=== PATIENT | female | born 1975 | race Caucasian/White ===

== ENCOUNTER 2016-08-12 15:50 | Emergency (ER) | payer OTHER ==
--- NOTE | 2016-08-12 17:29 | ED CLINICAL REPORT ---
Clinical Report - Physicians/Mid Levels [facility] [address] [place] [address] 08/12/2016 15:49 Patient: AUTUMN AGUDELO Time Seen: 15:52; initial patient contact. Arrived- By private vehicle. Historian- patient. HISTORY OF PRESENT ILLNESS Chief Complaint: BOIL. This started about 2 days ago and is still present and worsening. It was gradual in onset. It is described as painful. It has been located on the right thigh. No cause has been identified. No recent insect bite. Similar symptoms previously: None. Recent medical care: Not recently seen/assessed. REVIEW OF SYSTEMS No fever or enlarged lymph nodes. She has had chills. All systems otherwise negative, except as recorded above. PAST HISTORY Abscess. Lifestyle / Substance Problems. Cellulitis. Lumbar Strain. Reflux. Migraine Headache. ADDITIONAL SURGERIES: Carpal Tunnel Surgery. Hysterectomy. Shoulder Surgery. Sinus Surgery. Tubal Ligation. SOCIAL HISTORY Current every day smoker. History of IV drug use: heroin, methamphetamines, marijuana. Recently used drugs just prior to arrival. Under influence in ED. No alcohol use. ADDITIONAL NOTES The nursing notes have been reviewed with agreement regarding the chief complaint, PMH and patient medications and allergies. PHYSICAL EXAM Vital Signs: 08/12/2016 15:53 BP: 139/88. HR: 72. RR: 16. O2 saturation: 100%. Temp: 97.9 F. Have been reviewed as normal. Appearance: Alert. Oriented X3. Anxious. Skin: Single medium abscess with fluctuance, pointing and cellulitis to right thigh. Neuro: Oriented X 3. PROGRESS AND PROCEDURES Incision & Drainage of Abscess: Per protocol, time-out completed immediately before the procedure. The abscess is located in the right thigh. The risks of the procedure, benefits and alternatives were explained. Local anesthesia provided using 2% lidocaine. Skin cleansed with Shur-Clens. The abscess was incised with a #11 surgical blade. A large amount of pus was drained. Cavity was irrigated with saline and packed with gauze. Sample obtained for cultures. A dressing was applied. Estimated blood loss: 5 mL. Disposition: Discharged home in good and improved condition. Condition: good. CLINICAL IMPRESSION Single deep abscess to the right lower extremity with incision and drainage. INSTRUCTIONS Protect wound and keep wound area clean. Leave dressing in place until seen in follow-up. Your Current Medications: CONTINUE TAKING THE FOLLOWING MEDICATIONS: Citalopram Hydrobromide Oral : daily. Omeprazole Oral : 20 mg daily. Propranolol HCl Oral : daily. TraZODone HCl Oral : 50 mg daily. Prescription Medications: Hydrocodone/APAP 5mg / 325mg: take 1 orally every 6 hours as needed for pain. Dispense ten (10). No refill. Clindamycin 300 mg: take 1 capsule orally every 8 hours for 7 days. No refill. Follow-up with: [facility], , , [address], , [place], [id number] Follow up in two days. Call for an appointment. (Electronically signed by Sebas Boucher Dr. 08/12/2016 22:48)
--- NOTE | 2016-08-12 17:29 | ED NURSING NOTES ---
Clinical Report - Nurses [facility] [address] [place] [place] [address] 08/12/2016 15:49 Patient: AUTUMN AGUDELO TRIAGE Triage time 15:53. Acuity: LEVEL 4. Chief Complaint: SKIN RASH. Alert. No acute distress. SEPSIS SCREEN: Sepsis Screen. Negative (no infection suspected/documented). ANGIE COMA SCORE: [place] Coma Scale: 15- eyes open spontaneously (4); best verbal response- oriented x 4 (5); best motor response- obeys commands (6). --15:58 Sayra Whelan R.N. 15:53 08/12/16. BP: 139/88. HR: 72. RR: 16. O2 saturation: 100%. Temp: 97.9 F. Pain level now 8/10. --15:58 Sayra Whelan R.N. Weight: 68 kg stated. Height/Length: 65 inches Per Patient. BMI: 25. --15:53 Sayra Whelan R.N. Medications Omeprazole Oral 20 mg, daily. --15:56 Sayra Whelan R.N. Propranolol HCl Oral, daily. --15:57 Sayra Whelan R.N. Citalopram Hydrobromide Oral daily. --15:57 Sayra Whelan R.N. TraZODone HCl Oral 50 mg, daily. --15:57 Sayra Whelan R.N. Allergies No Known Drug Allergy. --15:57 Sayra Whelan R.N. History Arrived by private vehicle. Historian: patient. Accompanied by (boyfriend). Primary physician (none). Reported as located on the right thigh. Onset. (2 days ago). 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 PAST MEDICAL HX: Immunizations: up-to-date. SOCIAL HX: Light tobacco smoker (cigarette)- less than 1/2 a pack per day. Alcohol use. (hx of drinking: pt states she stopped 10 years ago). History of heavy IV drug use: cocaine, heroin, methamphetamines, marijuana, benzodiazepines. (last used meth today). NUTRITIONAL RISK ASSESSMENT: The nutritional risk assessment revealed no deficiencies. FUNCTIONAL ASSESSMENT: Functional assessment: no impairments noted. LEARNING NEEDS ASSESSMENT: The learning needs assessment revealed no barriers. --15:58 Sayra Whelan R.N. PROBLEMS: Abscess. Lifestyle / Substance Problems. Cellulitis. Lumbar Strain. Reflux. Migraine Headache. --15:58 Sayra Whelan R.N. ADDITIONAL SURGERIES: Carpal Tunnel Surgery. Hysterectomy. Shoulder Surgery. Sinus Surgery. Tubal Ligation. --15:58 Sayra Whelan R.N. Interventions ID band on patient. Ambulatory. --15:58 Sayra Whelan R.N. PHYSICAL ASSESSMENT Ambulatory to room. GENERAL / NEURO / PSYCH: Alert. The patient does not appear to be in acute distress. RESPIRATORY: Respirations not labored. CVS: Capillary refill less than 2 seconds. SKIN: Skin is warm and dry. Single skin lesion on the right thigh. --15:58 Sayra Whelan R.N. NURSING PROGRESS NOTES Patient gowned. Head of bed elevated. Two patient identifiers checked. Call light placed in reach. Side rails up x 2. Bed placed in lowest position. Brakes of bed on. Patient ready for evaluation- chart flagged. --15:58 Sayra Whelan R.N. I & D: Incision and Drainage of abscess performed by ED physician. Assisted by one tech. Preparation: Incision and Drainage tray set up. Total time of assist / procedure: 15 minutes. ( cleaned wound, bulky 4 x 4 's held with tape.). --16:41 Jessica Chris ER Tech1 ( pt. ask and is given paper pants.). --16:42 Jessica Chris ER Tech1. DISPOSITION / DISCHARGE 17:35 08/12/16. RR: 16. Additional comments: re d/c v/s: pt left ED prior to d/c v/s. Pt. given d/c paperwork in waiting room. . --20:47 Sayra Whelan R.N. Departure time: 1735. Condition at departure: stable. No learning barriers present. Discharge instructions provided and reviewed with the patient. Reviewed medication(s) side effects, precautions, dosing and course information. Prescription(s) given to the patient. Reviewed referral to family practice for followup. Patient verbalized understanding. Written instructions provided in Hebrew. The patient was discharged home and accompanied by family. She left the Emergency Department ambulatory and via private vehicle. Family member driving. Medication list reviewed and validated. --20:47 Sayra Whelan R.N. Locked/Released at 08/12/2016 20:48 by Sayra Whelan R.N.
--- NOTE | 2016-08-12 17:29 | ED NURSING NOTES ---
Clinical Report - Nurses [facility] [address] [place] [address] 08/12/2016 15:49 Patient: AUTUMN AGUDELO TRIAGE Triage time 15:53. Acuity: LEVEL 4. Chief Complaint: SKIN RASH. Alert. No acute distress. SEPSIS SCREEN: Sepsis Screen. Negative (no infection suspected/documented). ANGIE COMA SCORE: [place] Coma Scale: 15- eyes open spontaneously (4); best verbal response- oriented x 4 (5); best motor response- obeys commands (6). --15:58 Syara Whelan R.N. 15:53 08/12/16. BP: 139/88. HR: 72. RR: 16. O2 saturation: 100%. Temp: 97.9 F. Pain level now 8/10. --15:58 Sayra Whelan R.N. Weight: 68 kg stated. Height/Length: 65 inches Per Patient. BMI: 25. --15:53 Sayra Whelan R.N. Medications Omeprazole Oral 20 mg, daily. --15:56 Sayra Whelan R.N. Propranolol HCl Oral, daily. --15:57 Sayra Whelan R.N. Citalopram Hydrobromide Oral daily. --15:57 Sayra Whelan R.N. TraZODone HCl Oral 50 mg, daily. --15:57 Sayra Whelan R.N. Allergies No Known Drug Allergy. --15:57 Sayra Whelan R.N. History Arrived by private vehicle. Historian: patient. Accompanied by (boyfriend). Primary physician (none). Reported as located on the right thigh. Onset. (2 days ago). 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 PAST MEDICAL HX: Immunizations: up-to-date. SOCIAL HX: Light tobacco smoker (cigarette)- less than 1/2 a pack per day. Alcohol use. (hx of drinking: pt states she stopped 10 years ago). History of heavy IV drug use: cocaine, heroin, methamphetamines, marijuana, benzodiazepines. (last used meth today). NUTRITIONAL RISK ASSESSMENT: The nutritional risk assessment revealed no deficiencies. FUNCTIONAL ASSESSMENT: Functional assessment: no impairments noted. LEARNING NEEDS ASSESSMENT: The learning needs assessment revealed no barriers. --15:58 Sayra Whelan R.N. PROBLEMS: Abscess. Lifestyle / Substance Problems. Cellulitis. Lumbar Strain. Reflux. Migraine Headache. --15:58 Sayra Whelan R.N. ADDITIONAL SURGERIES: Carpal Tunnel Surgery. Hysterectomy. Shoulder Surgery. Sinus Surgery. Tubal Ligation. --15:58 Sayra Whelan R.N. Interventions ID band on patient. Ambulatory. --15:58 Sayra Whelan R.N. PHYSICAL ASSESSMENT Ambulatory to room. GENERAL / NEURO / PSYCH: Alert. The patient does not appear to be in acute distress. RESPIRATORY: Respirations not labored. CVS: Capillary refill less than 2 seconds. SKIN: Skin is warm and dry. Single skin lesion on the right thigh. --15:58 Sayra Whelan R.N. NURSING PROGRESS NOTES Patient gowned. Head of bed elevated. Two patient identifiers checked. Call light placed in reach. Side rails up x 2. Bed placed in lowest position. Brakes of bed on. Patient ready for evaluation- chart flagged. --15:58 Sayra Whelan R.N. I & D: Incision and Drainage of abscess performed by ED physician. Assisted by one tech. Preparation: Incision and Drainage tray set up. Total time of assist / procedure: 15 minutes. ( cleaned wound, bulky 4 x 4 's held with tape.). --16:41 Jessica Chris ER Tech1 ( pt. ask and is given paper pants.). --16:42 Jessica Chris ER Tech1. DISPOSITION / DISCHARGE 17:35 08/12/16. RR: 16. Additional comments: re d/c v/s: pt left ED prior to d/c v/s. Pt. given d/c paperwork in waiting room. . --20:47 Sayra Whelan R.N. Departure time: 1735. Condition at departure: stable. No learning barriers present. Discharge instructions provided and reviewed with the patient. Reviewed medication(s) side effects, precautions, dosing and course information. Prescription(s) given to the patient. Reviewed referral to family practice for followup. Patient verbalized understanding. Written instructions provided in Urdu. The patient was discharged home and accompanied by family. She left the Emergency Department ambulatory and via private vehicle. Family member driving. Medication list reviewed and validated. --20:47 Sayra Whelan R.N. Locked/Released at 08/12/2016 20:48 by Sayra Whelan R.N.
--- NOTE | 2016-08-12 17:29 | ED CLINICAL REPORT ---
Clinical Report - Physicians/Mid Levels [facility] [address] [place] [address] 08/12/2016 15:49 Patient: AUTUMN AGUDELO Time Seen: 15:52; initial patient contact. Arrived- By private vehicle. Historian- patient. HISTORY OF PRESENT ILLNESS Chief Complaint: BOIL. This started about 2 days ago and is still present and worsening. It was gradual in onset. It is described as painful. It has been located on the right thigh. No cause has been identified. No recent insect bite. Similar symptoms previously: None. Recent medical care: Not recently seen/assessed. REVIEW OF SYSTEMS No fever or enlarged lymph nodes. She has had chills. All systems otherwise negative, except as recorded above. PAST HISTORY Abscess. Lifestyle / Substance Problems. Cellulitis. Lumbar Strain. Reflux. Migraine Headache. ADDITIONAL SURGERIES: Carpal Tunnel Surgery. Hysterectomy. Shoulder Surgery. Sinus Surgery. Tubal Ligation. SOCIAL HISTORY Current every day smoker. History of IV drug use: heroin, methamphetamines, marijuana. Recently used drugs just prior to arrival. Under influence in ED. No alcohol use. ADDITIONAL NOTES The nursing notes have been reviewed with agreement regarding the chief complaint, PMH and patient medications and allergies. PHYSICAL EXAM Vital Signs: 08/12/2016 15:53 BP: 139/88. HR: 72. RR: 16. O2 saturation: 100%. Temp: 97.9 F. Have been reviewed as normal. Appearance: Alert. Oriented X3. Anxious. Skin: Single medium abscess with fluctuance, pointing and cellulitis to right thigh. Neuro: Oriented X 3. PROGRESS AND PROCEDURES Incision & Drainage of Abscess: Per protocol, time-out completed immediately before the procedure. The abscess is located in the right thigh. The risks of the procedure, benefits and alternatives were explained. Local anesthesia provided using 2% lidocaine. Skin cleansed with Shur-Clens. The abscess was incised with a #11 surgical blade. A large amount of pus was drained. Cavity was irrigated with saline and packed with gauze. Sample obtained for cultures. A dressing was applied. Estimated blood loss: 5 mL. Disposition: Discharged home in good and improved condition. Condition: good. CLINICAL IMPRESSION Single deep abscess to the right lower extremity with incision and drainage. INSTRUCTIONS Protect wound and keep wound area clean. Leave dressing in place until seen in follow-up. Your Current Medications: CONTINUE TAKING THE FOLLOWING MEDICATIONS: Citalopram Hydrobromide Oral : daily. Omeprazole Oral : 20 mg daily. Propranolol HCl Oral : daily. TraZODone HCl Oral : 50 mg daily. Prescription Medications: Hydrocodone/APAP 5mg / 325mg: take 1 orally every 6 hours as needed for pain. Dispense ten (10). No refill. Clindamycin 300 mg: take 1 capsule orally every 8 hours for 7 days. No refill. Follow-up with: [facility], , , [address], , [place], [id number] Follow up in two days. Call for an appointment. (Electronically signed by Sebas Boucher Dr. 08/12/2016 22:48)
--- NOTE | 2016-08-12 17:29 | ED ORDER SUMMARY ---
..... Patient: AUTUMN AGUDELO OrderSheet [facility] VisitID: [id number] [address] [place] [address] 41y, F Registration Date/Time: 08/12/2016 ORDER SHEET Weight: 68.0 kg (stated) Allergies: No Known Drug Allergy GENERAL ORDERS: Culture, Wound Deep (Leg) (...) Urgent (16:57 08/12/2016 Charlette Santos) (17:00 [facility] ER Tech1) MEDICATION ORDERS: IV FLUIDS: ORDER SHEET NOTES: [Electronically signed by Sayra Whelan R.N. (20:48 08/12/2016)] [Electronically signed by Sebas Boucher Dr. (22:48 08/12/2016)] [Electronically locked/signed by Sayra Whelan R.N. (20:48 08/12/2016)]
--- NOTE | 2016-08-12 17:29 | ED ORDER SUMMARY ---
..... Patient: AUTUMN AGUDELO OrderSheet [facility] VisitID: [id number] [address] [place] [address] 41y, F Registration Date/Time: 08/12/2016 ORDER SHEET Weight: 68.0 kg (stated) Allergies: No Known Drug Allergy GENERAL ORDERS: Culture, Wound Deep (Leg) (...) Urgent (16:57 08/12/2016 Charlette Santos) (17:00 [facility] ER Tech1) MEDICATION ORDERS: IV FLUIDS: ORDER SHEET NOTES: [Electronically signed by Sayra Whelan R.N. (20:48 08/12/2016)] [Electronically signed by Sebas Boucher Dr. (22:48 08/12/2016)] [Electronically locked/signed by Sayra Whelan R.N. (20:48 08/12/2016)]
--- NOTE | 2016-08-12 22:48 | ED DISCHARGE INSTRUCTIONS ---
Patient: AUTUMN AGUDELO General Instructions [facility] VisitID: [id number] [address] [place] [address] 41y, F Registration Date/Time: 08/12/2016 Single deep abscess to the right lower extremity with incision and drainage. INSTRUCTIONS Protect wound and keep wound area clean. Leave dressing in place until seen in follow-up. Your Current Medications: CONTINUE TAKING THE FOLLOWING MEDICATIONS: Citalopram Hydrobromide Oral : daily. Omeprazole Oral : 20 mg daily. Propranolol HCl Oral : daily. TraZODone HCl Oral : 50 mg daily. Prescription Medications: Hydrocodone/APAP 5mg / 325mg: take 1 orally every 6 hours as needed for pain. Dispense ten (10). No refill. Clindamycin 300 mg: take 1 capsule orally every 8 hours for 7 days. No refill. Follow-up with: [facility], , , [address], , [place], [address] Follow up in two days. Call for an appointment. ADDITIONAL INFORMATION Abscess [Incision & Drainage] An abscess (sometimes called a boil) occurs when bacteria get trapped under the skin and begin to grow. Pus forms inside the abscess as the body responds to the bacteria. An abscess can occur with an insect bite, ingrown hair, blocked oil gland, pimple, cyst, or puncture wound. Treatment of your abscess has required an incision to drain the pus. If the abscess pocket was large, a gauze packing may have been inserted. This will need to be removed and possibly replaced on your next visit. Antibiotics are not required in the treatment of a simple abscess, unless the infection is spreading into the skin around the wound (known as cellulitis). Healing of the wound will take about one to two weeks depending on the size of the abscess. Healthy tissue will grow from the bottom and sides of the opening until it seals over. Home Care: The wound may drain for the first two days. Cover the wound with a clean dry dressing. If the dressing becomes soaked with blood or pus, change it. If a gauze packing was placed inside the abscess cavity, you may be advised to remove it yourself. You may do this in the shower. Once the packing is removed, you should wash the area in the shower or bath 3 to 4 times a day, until the skin opening has closed. If you were prescribed antibiotics, take them as directed until they are all gone. You may use acetaminophen (Tylenol) or ibuprofen (Motrin, Advil) to control pain, unless another pain medicine was prescribed. [ NOTE: If you have liver disease or ever had a stomach ulcer, talk with your doctor before using these medicines.] Follow Up with your doctor as advised by our staff. If a gauze packing was inserted in your wound, it should be removed in 1-2 days. Check your wound every day for the signs of worsening infection listed below. Get Prompt Medical Attention if any of the following occur: Increasing redness or swelling Red streaks in the skin leading away from the wound Increasing local pain or swelling Continued pus draining from the wound two days after treatment Fever of 100.4F (38C) or higher, or as directed by your healthcare provider Hydrocodone Bitartrate, Acetaminophen Oral tablet What is this medicine? ACETAMINOPHEN; HYDROCODONE (a set a KAYLA parth fen; kristine droe KOE done) is a pain reliever. It is used to treat mild to moderate pain. How should I use this medicine? Take this medicine by mouth. Swallow it with a full glass of water. Follow the directions on the prescription label. If the medicine upsets your stomach, take the medicine with food or milk. Do not take more than you are told to take. Talk to your side laster tack regarding the use of this medicine in children. This medicine is not approved for use in children. What side effects may I notice from receiving this medicine? Side effects that you should report to your doctor or health home care associate as soon as possible: allergic reactions like skin rash, itching or hives, swelling of the face, lips, or tongue breathing problems confusion feeling faint or lightheaded, falls stomach pain yellowing of the eyes or skin Side effects that usually do not require medical attention (report to your doctor or health home care associate if they continue or are bothersome): nausea, vomiting stomach upset What may interact with this medicine? alcohol antihistamines isoniazid medicines for depression, anxiety, or psychotic disturbances medicines for sleep muscle relaxants naltrexone narcotic medicines (opiates) for pain phenobarbital ritonavir tramadol What if I miss a dose? If you miss a dose, take it as soon as you can. If it is almost time for your next dose, take only that dose. Do not take double or extra doses. Where should I keep my medicine? Keep out of the reach of children. This medicine can be abused. Keep your medicine in a safe place to protect it from theft. Do not share this medicine with anyone. Selling or giving away this medicine is dangerous and against the law. Store at room temperature between 15 and 30 degrees C (59 and 86 degrees F). Protect from light. Keep container tightly closed. Throw away any unused medicine after the expiration date. Discard unused medicine and used packaging carefully. Pets and children can be harmed if they find used or lost packages. What should I tell my health care provider before I take this medicine? They need to know if you have any of these conditions: brain tumor Crohn's disease, inflammatory bowel disease, or ulcerative colitis drink more than 3 alcohol-containing drinks per day drug abuse or addiction head injury heart or circulation problems kidney disease or problems going to the bathroom liver disease lung disease, asthma, or breathing problems an unusual or allergic reaction to acetaminophen, hydrocodone, other opioid analgesics, other medicines, foods, dyes, or preservatives or trying to get breast-feeding What should I watch for while using this medicine? Tell your doctor or health home care associate if your pain does not go away, if it gets worse, or if you have new or a different type of pain. You may develop tolerance to the medicine. Tolerance means that you will need a higher dose of the medicine for pain relief. Tolerance is normal and is expected if you take the medicine for a long time. Do not suddenly stop taking your medicine because you may develop a severe reaction. Your body becomes used to the medicine. This does NOT mean you are addicted. Addiction is a behavior related to getting and using a drug for a non-medical reason. If you have pain, you have a medical reason to take pain medicine. Your doctor will tell you how much medicine to take. If your doctor wants you to stop the medicine, the dose will be slowly lowered over time to avoid any side effects. You may get drowsy or dizzy when you first start taking the medicine or change doses. Do not drive, use machinery, or do anything that may be dangerous until you know how the medicine affects you. Stand or sit up slowly. There are different types of narcotic medicines (opiates) for pain. If you take more than one type at the same time, you may have more side effects. Give your health care provider a list of all medicines you use. Your doctor will tell you how much medicine to take. Do not take more medicine than directed. Call emergency for help if you have problems breathing. The medicine will cause constipation. Try to have a bowel movement at least every 2 to 3 days. If you do not have a bowel movement for 3 days, call your doctor or health home care associate. Too much acetaminophen can be very dangerous. Do not take Tylenol (acetaminophen) or medicines that contain acetaminophen with this medicine. Many non-prescription medicines contain acetaminophen. Always read the labels carefully. Clindamycin Hydrochloride Oral capsule What is this medicine? CLINDAMYCIN (PATRIZIA Berumen) is a lincosamide antibiotic. It is used to treat certain kinds of bacterial infections. It will not work for colds, flu, or other viral infections. How should I use this medicine? Take this medicine by mouth with a full glass of water. Follow the directions on the prescription label. You can take this medicine with food or on an empty stomach. If the medicine upsets your stomach, take it with food. Take your medicine at regular intervals. Do not take your medicine more often than directed. Take all of your medicine as directed even if you think your are better. Do not skip doses or stop your medicine early. Talk to your side laster tack regarding the use of this medicine in children. Special care may be needed. What side effects may I notice from receiving this medicine? Side effects that you should report to your doctor or health home care associate as soon as possible: allergic reactions like skin rash, itching or hives, swelling of the face, lips, or tongue dark urine pain on swallowing redness, blistering, peeling or loosening of the skin, including inside the mouth unusual bleeding or bruising unusually weak or tired yellowing of eyes or skin Side effects that usually do not require medical attention (report to your doctor or health home care associate if they continue or are bothersome): diarrhea itching in the rectal or genital area joint pain nausea, vomiting stomach pain What may interact with this medicine? chloramphenicol erythromycin kaolin products What if I miss a dose? If you miss a dose, take it as soon as you can. If it is almost time for your next dose, take only that dose. Do not take double or extra doses. Where should I keep my medicine? Keep out of the reach of children. Store at room temperature between 20 and 25 degrees C (68 and 77 degrees F). Throw away any unused medicine after the expiration date. What should I tell my health care provider before I take this medicine? They need to know if you have any of these conditions: kidney disease liver disease stomach problems like colitis an unusual or allergic reaction to clindamycin, lincomycin, or other medicines, foods, dyes like tartrazine or preservatives or trying to get breast-feeding What should I watch for while using this medicine? Tell your doctor or healthcare professional if your symptoms do not start to get better or if they get worse. Do not treat diarrhea with over the counter products. Contact your doctor if you have diarrhea that lasts more than 2 days or if it is severe and watery. You have been given the following additional information: Abscess, Incision And Drainage Hydrocodone Bitartrate, Acetaminophen Oral tablet Clindamycin Hydrochloride Oral capsule (Electronically signed by Sebas Boucher Dr. 08/12/2016 22:48)
--- NOTE | 2016-08-12 22:48 | ED MED RECONCILIATION SUMMARY ---
Patient: AUTUMN AGUDELO Medication Reconciliation Report [facility] VisitID: [id number] [address] [place] [place] [address] 41y, F Registration Date/Time: 08/12/2016 Weight: 68.0 kg Height/Length: 65 in. BMI: 25.0 ALLERGIES: No Known Drug Allergy The patient's Home Medications are listed below: CONTINUE TAKING THE FOLLOWING MEDICATIONS: Citalopram Hydrobromide Oral daily Omeprazole Oral 20 mg, daily Propranolol HCl Oral, daily TraZODone HCl Oral 50 mg, daily The source(s) of the original Home Medication information: Not obtained. The following Medications were given to the patient in the Emergency Department: None. The following Medications were prescribed to the patient: Hydrocodone/APAP 5mg / 325mg: take 1 orally every 6 hours as needed for pain. Dispense ten (10). No refill. -- Sebas Boucher Dr. Clindamycin 300 mg: take 1 capsule orally every 8 hours for 7 days. No refill. -- Sebas Boucher Dr.
--- NOTE | 2016-08-12 22:48 | ED DISCHARGE INSTRUCTIONS ---
Patient: AUTUMN AGUDELO General Instructions [facility] VisitID: [id number] [address] [place] [address] 41y, F Registration Date/Time: 08/12/2016 Single deep abscess to the right lower extremity with incision and drainage. INSTRUCTIONS Protect wound and keep wound area clean. Leave dressing in place until seen in follow-up. Your Current Medications: CONTINUE TAKING THE FOLLOWING MEDICATIONS: Citalopram Hydrobromide Oral : daily. Omeprazole Oral : 20 mg daily. Propranolol HCl Oral : daily. TraZODone HCl Oral : 50 mg daily. Prescription Medications: Hydrocodone/APAP 5mg / 325mg: take 1 orally every 6 hours as needed for pain. Dispense ten (10). No refill. Clindamycin 300 mg: take 1 capsule orally every 8 hours for 7 days. No refill. Follow-up with: [facility], , , [address], , [place], [address] Follow up in two days. Call for an appointment. ADDITIONAL INFORMATION Abscess [Incision & Drainage] An abscess (sometimes called a boil) occurs when bacteria get trapped under the skin and begin to grow. Pus forms inside the abscess as the body responds to the bacteria. An abscess can occur with an insect bite, ingrown hair, blocked oil gland, pimple, cyst, or puncture wound. Treatment of your abscess has required an incision to drain the pus. If the abscess pocket was large, a gauze packing may have been inserted. This will need to be removed and possibly replaced on your next visit. Antibiotics are not required in the treatment of a simple abscess, unless the infection is spreading into the skin around the wound (known as cellulitis). Healing of the wound will take about one to two weeks depending on the size of the abscess. Healthy tissue will grow from the bottom and sides of the opening until it seals over. Home Care: The wound may drain for the first two days. Cover the wound with a clean dry dressing. If the dressing becomes soaked with blood or pus, change it. If a gauze packing was placed inside the abscess cavity, you may be advised to remove it yourself. You may do this in the shower. Once the packing is removed, you should wash the area in the shower or bath 3 to 4 times a day, until the skin opening has closed. If you were prescribed antibiotics, take them as directed until they are all gone. You may use acetaminophen (Tylenol) or ibuprofen (Motrin, Advil) to control pain, unless another pain medicine was prescribed. [ NOTE: If you have liver disease or ever had a stomach ulcer, talk with your doctor before using these medicines.] Follow Up with your doctor as advised by our staff. If a gauze packing was inserted in your wound, it should be removed in 1-2 days. Check your wound every day for the signs of worsening infection listed below. Get Prompt Medical Attention if any of the following occur: Increasing redness or swelling Red streaks in the skin leading away from the wound Increasing local pain or swelling Continued pus draining from the wound two days after treatment Fever of 100.4F (38C) or higher, or as directed by your healthcare provider Hydrocodone Bitartrate, Acetaminophen Oral tablet What is this medicine? ACETAMINOPHEN; HYDROCODONE (a set a KAYLA parth fen; kristine droe KOE done) is a pain reliever. It is used to treat mild to moderate pain. How should I use this medicine? Take this medicine by mouth. Swallow it with a full glass of water. Follow the directions on the prescription label. If the medicine upsets your stomach, take the medicine with food or milk. Do not take more than you are told to take. Talk to your retail chain store area supervisor regarding the use of this medicine in children. This medicine is not approved for use in children. What side effects may I notice from receiving this medicine? Side effects that you should report to your doctor or health laboratory animal caretaker as soon as possible: allergic reactions like skin rash, itching or hives, swelling of the face, lips, or tongue breathing problems confusion feeling faint or lightheaded, falls stomach pain yellowing of the eyes or skin Side effects that usually do not require medical attention (report to your doctor or health laboratory animal caretaker if they continue or are bothersome): nausea, vomiting stomach upset What may interact with this medicine? alcohol antihistamines isoniazid medicines for depression, anxiety, or psychotic disturbances medicines for sleep muscle relaxants naltrexone narcotic medicines (opiates) for pain phenobarbital ritonavir tramadol What if I miss a dose? If you miss a dose, take it as soon as you can. If it is almost time for your next dose, take only that dose. Do not take double or extra doses. Where should I keep my medicine? Keep out of the reach of children. This medicine can be abused. Keep your medicine in a safe place to protect it from theft. Do not share this medicine with anyone. Selling or giving away this medicine is dangerous and against the law. Store at room temperature between 15 and 30 degrees C (59 and 86 degrees F). Protect from light. Keep container tightly closed. Throw away any unused medicine after the expiration date. Discard unused medicine and used packaging carefully. Pets and children can be harmed if they find used or lost packages. What should I tell my health care provider before I take this medicine? They need to know if you have any of these conditions: brain tumor Crohn's disease, inflammatory bowel disease, or ulcerative colitis drink more than 3 alcohol-containing drinks per day drug abuse or addiction head injury heart or circulation problems kidney disease or problems going to the bathroom liver disease lung disease, asthma, or breathing problems an unusual or allergic reaction to acetaminophen, hydrocodone, other opioid analgesics, other medicines, foods, dyes, or preservatives or trying to get breast-feeding What should I watch for while using this medicine? Tell your doctor or health laboratory animal caretaker if your pain does not go away, if it gets worse, or if you have new or a different type of pain. You may develop tolerance to the medicine. Tolerance means that you will need a higher dose of the medicine for pain relief. Tolerance is normal and is expected if you take the medicine for a long time. Do not suddenly stop taking your medicine because you may develop a severe reaction. Your body becomes used to the medicine. This does NOT mean you are addicted. Addiction is a behavior related to getting and using a drug for a non-medical reason. If you have pain, you have a medical reason to take pain medicine. Your doctor will tell you how much medicine to take. If your doctor wants you to stop the medicine, the dose will be slowly lowered over time to avoid any side effects. You may get drowsy or dizzy when you first start taking the medicine or change doses. Do not drive, use machinery, or do anything that may be dangerous until you know how the medicine affects you. Stand or sit up slowly. There are different types of narcotic medicines (opiates) for pain. If you take more than one type at the same time, you may have more side effects. Give your health care provider a list of all medicines you use. Your doctor will tell you how much medicine to take. Do not take more medicine than directed. Call emergency for help if you have problems breathing. The medicine will cause constipation. Try to have a bowel movement at least every 2 to 3 days. If you do not have a bowel movement for 3 days, call your doctor or health laboratory animal caretaker. Too much acetaminophen can be very dangerous. Do not take Tylenol (acetaminophen) or medicines that contain acetaminophen with this medicine. Many non-prescription medicines contain acetaminophen. Always read the labels carefully. Clindamycin Hydrochloride Oral capsule What is this medicine? CLINDAMYCIN (PATRIZIA Berumen) is a lincosamide antibiotic. It is used to treat certain kinds of bacterial infections. It will not work for colds, flu, or other viral infections. How should I use this medicine? Take this medicine by mouth with a full glass of water. Follow the directions on the prescription label. You can take this medicine with food or on an empty stomach. If the medicine upsets your stomach, take it with food. Take your medicine at regular intervals. Do not take your medicine more often than directed. Take all of your medicine as directed even if you think your are better. Do not skip doses or stop your medicine early. Talk to your retail chain store area supervisor regarding the use of this medicine in children. Special care may be needed. What side effects may I notice from receiving this medicine? Side effects that you should report to your doctor or health laboratory animal caretaker as soon as possible: allergic reactions like skin rash, itching or hives, swelling of the face, lips, or tongue dark urine pain on swallowing redness, blistering, peeling or loosening of the skin, including inside the mouth unusual bleeding or bruising unusually weak or tired yellowing of eyes or skin Side effects that usually do not require medical attention (report to your doctor or health laboratory animal caretaker if they continue or are bothersome): diarrhea itching in the rectal or genital area joint pain nausea, vomiting stomach pain What may interact with this medicine? chloramphenicol erythromycin kaolin products What if I miss a dose? If you miss a dose, take it as soon as you can. If it is almost time for your next dose, take only that dose. Do not take double or extra doses. Where should I keep my medicine? Keep out of the reach of children. Store at room temperature between 20 and 25 degrees C (68 and 77 degrees F). Throw away any unused medicine after the expiration date. What should I tell my health care provider before I take this medicine? They need to know if you have any of these conditions: kidney disease liver disease stomach problems like colitis an unusual or allergic reaction to clindamycin, lincomycin, or other medicines, foods, dyes like tartrazine or preservatives or trying to get breast-feeding What should I watch for while using this medicine? Tell your doctor or healthcare professional if your symptoms do not start to get better or if they get worse. Do not treat diarrhea with over the counter products. Contact your doctor if you have diarrhea that lasts more than 2 days or if it is severe and watery. You have been given the following additional information: Abscess, Incision And Drainage Hydrocodone Bitartrate, Acetaminophen Oral tablet Clindamycin Hydrochloride Oral capsule (Electronically signed by Sebas Boucher Dr. 08/12/2016 22:48)
--- NOTE | 2016-08-12 22:48 | ED MED RECONCILIATION SUMMARY ---
Patient: AUTUMN AGUDELO Medication Reconciliation Report [facility] VisitID: [id number] [address] [place] [address] 41y, F Registration Date/Time: 08/12/2016 Weight: 68.0 kg Height/Length: 65 in. BMI: 25.0 ALLERGIES: No Known Drug Allergy The patient's Home Medications are listed below: CONTINUE TAKING THE FOLLOWING MEDICATIONS: Citalopram Hydrobromide Oral daily Omeprazole Oral 20 mg, daily Propranolol HCl Oral, daily TraZODone HCl Oral 50 mg, daily The source(s) of the original Home Medication information: Not obtained. The following Medications were given to the patient in the Emergency Department: None. The following Medications were prescribed to the patient: Hydrocodone/APAP 5mg / 325mg: take 1 orally every 6 hours as needed for pain. Dispense ten (10). No refill. -- Sebas Boucher Dr. Clindamycin 300 mg: take 1 capsule orally every 8 hours for 7 days. No refill. -- Sebas Boucher Dr.
--- NOTE | 2016-08-12 22:48 | ED MAR SUMMARY ---
..... Medication Administration Record [facility] [address] [place], [place] [id number] Patient: AUTUMN AGUDELO Visit ID: [id number] 41y, F Weight: 68.0 kg Height/Length: 65 in BMI: 25 ALLERGIES: No Known Drug Allergy
--- NOTE | 2016-08-12 22:48 | ED MAR SUMMARY ---
..... Medication Administration Record [facility] [address] [place] [id number] Patient: AUTUMN AGUDELO Visit ID: [id number] 41y, F Weight: 68.0 kg Height/Length: 65 in BMI: 25 ALLERGIES: No Known Drug Allergy
== END 2016-08-12 17:35 | disposition home or self-care (01) ==
LOC: ED SRH 15:50
DX: L03.115 Cellulitis of right lower limb (principal); K21.9 Gastro-esophageal reflux disease without esophagitis; F17.210 Nicotine dependence, cigarettes, uncomplicated
CPT/HCPCS: 90070; 90131; 90309; 90470; 91672

== ENCOUNTER 2016-09-04 02:27 | Emergency (ER) | payer OTHER ==
--- NOTE | 2016-09-04 02:47 | ED NURSING NOTES ---
Clinical Report - Nurses [facility] [address] [place] [address] 09/04/2016 2:26 Patient: AUTUMN AGUDELO TRIAGE Triage time 0232 AM. Chief Complaint: BACK PAIN. Alert. No acute distress. ANGIE COMA SCORE: [place] Coma Scale: 15- eyes open spontaneously (4); best verbal response- oriented x 4 (5); best motor response- obeys commands (6). --02:37 Fredy Sood R.N. 02:31 09/04/16. HR: 123. RR: 20. O2 saturation: 97%. Temp: 98.7 F. Pain level now: 04/14. Additional comments: Patient refused blood pressure. --02:37 Fredy Sood R.N. Weight: 68 kg stated. Height/Length: 65 inches Per Patient. BMI: 25. --02:31 Fredy Sood R.N. Medications Citalopram Hydrobromide Oral daily. Omeprazole Oral 20 mg, daily. Propranolol HCl Oral, daily. TraZODone HCl Oral 50 mg, daily. --02:35 Fredy Sood R.N. Allergies No Known Drug Allergy. --02:35 Fredy Sood R.N. History Arrived by EMS. Historian: patient. Unaccompanied. ( Patient states that she she has a history of sciatica effecting her right side. Patient states that a few weeks ago that she feel down on the street last week and injured her left side, arm, and neck. Patient states that she is also experiencing bilateral headaches. Patient crying upon arrival.). --02:37 Fredy Sood R.N. PROBLEMS: Abscess. Lifestyle / Substance Problems. Cellulitis. Immunizations. LNMP - Last Normal Menstrual Period. Lumbar Strain. Reflux. Migraine Headache. --02:36 Fredy Sood R.N. Pain contract [Resolved]. --02:36 Fredy Sood R.N. ADDITIONAL SURGERIES: Carpal Tunnel Surgery. Hysterectomy. Shoulder Surgery. Sinus Surgery. Tubal Ligation. --02:36 Fredy Sood R.N. DISPOSITION / DISCHARGE The patient left the Emergency Department before triage and without being seen by a physician; patient was unaccompanied. The patient appears to be alert, oriented x4, coherent and in no acute distress. The patient stated is leaving the ED due to personal reasons. Notified the ED physician and charge nurse of patient departure. Prior to leaving the ED, she was advised to stay for completion of treatment and return if needed. She was informed of the risks of leaving and verbalized understanding of these risks. Patient signed form prior to leaving. She left the Emergency Department ambulatory. --02:40 Fredy Sood R.N. Departure time: 0240 AM. --02:41 Fredy Sood R.N. ( Brought patient's coat to her in the lobby. Patient is standing and talking on the phone with an even and steady gait.). --02:49 Fredy Sood R.N. Locked/Released at 09/04/2016 2:51 by Fredy Sood R.N.
--- NOTE | 2016-09-04 02:47 | ED NURSING NOTES ---
Clinical Report - Nurses [facility] [address] [place] [address] 09/04/2016 2:26 Patient: AUTUMN AGUDELO TRIAGE Triage time 0232 AM. Chief Complaint: BACK PAIN. Alert. No acute distress. ANGIE COMA SCORE: [place] Coma Scale: 15- eyes open spontaneously (4); best verbal response- oriented x 4 (5); best motor response- obeys commands (6). --02:37 Fredy Sood R.N. 02:31 09/04/16. HR: 123. RR: 20. O2 saturation: 97%. Temp: 98.7 F. Pain level now: 04/14. Additional comments: Patient refused blood pressure. --02:37 Fredy Sood R.N. Weight: 68 kg stated. Height/Length: 65 inches Per Patient. BMI: 25. --02:31 Fredy Sood R.N. Medications Citalopram Hydrobromide Oral daily. Omeprazole Oral 20 mg, daily. Propranolol HCl Oral, daily. TraZODone HCl Oral 50 mg, daily. --02:35 Fredy Sood R.N. Allergies No Known Drug Allergy. --02:35 Fredy Sood R.N. History Arrived by EMS. Historian: patient. Unaccompanied. ( Patient states that she she has a history of sciatica effecting her right side. Patient states that a few weeks ago that she feel down on the street last week and injured her left side, arm, and neck. Patient states that she is also experiencing bilateral headaches. Patient crying upon arrival.). --02:37 Fredy Sood R.N. PROBLEMS: Abscess. Lifestyle / Substance Problems. Cellulitis. Immunizations. LNMP - Last Normal Menstrual Period. Lumbar Strain. Reflux. Migraine Headache. --02:36 Fredy Sood R.N. Pain contract [Resolved]. --02:36 Fredy Sood R.N. ADDITIONAL SURGERIES: Carpal Tunnel Surgery. Hysterectomy. Shoulder Surgery. Sinus Surgery. Tubal Ligation. --02:36 Fredy Sood R.N. DISPOSITION / DISCHARGE The patient left the Emergency Department before triage and without being seen by a physician; patient was unaccompanied. The patient appears to be alert, oriented x4, coherent and in no acute distress. The patient stated is leaving the ED due to personal reasons. Notified the ED physician and charge nurse of patient departure. Prior to leaving the ED, she was advised to stay for completion of treatment and return if needed. She was informed of the risks of leaving and verbalized understanding of these risks. Patient signed form prior to leaving. She left the Emergency Department ambulatory. --02:40 Fredy Sood R.N. Departure time: 0240 AM. --02:41 Fredy Sood R.N. ( Brought patient's coat to her in the lobby. Patient is standing and talking on the phone with an even and steady gait.). --02:49 Fredy Sood R.N. Locked/Released at 09/04/2016 2:51 by Fredy Sood R.N.
--- NOTE | 2016-09-04 02:47 | ED CLINICAL REPORT ---
Clinical Report - Physicians/Mid Levels [facility] [address] [place] [address] 09/04/2016 2:26 Patient: AUTUMN AGUDELO PROGRESS AND PROCEDURES Course of Care: Left without being seen. (Electronically signed by Milan Jain MD 09/04/2016 2:51)
--- NOTE | 2016-09-04 02:47 | ED CLINICAL REPORT ---
Clinical Report - Physicians/Mid Levels [facility] [address] [place] [address] 09/04/2016 2:26 Patient: AUTUMN AGUDELO PROGRESS AND PROCEDURES Course of Care: Left without being seen. (Electronically signed by Milan Jain MD 09/04/2016 2:51)
--- NOTE | 2016-09-04 02:52 | ED MED RECONCILIATION SUMMARY ---
Patient: AUUTMN AGUDELO Medication Reconciliation Report [facility] VisitID: [id number] [address] [place] [address] 41y, F Registration Date/Time: 09/04/2016 Weight: 68.0 kg Height/Length: 65 in. BMI: 25.0 ALLERGIES: No Known Drug Allergy The patient's Home Medications are listed below: THE FOLLOWING MEDICATIONS NEED TO BE RECONCILED: Citalopram Hydrobromide Oral daily Omeprazole Oral 20 mg, daily Propranolol HCl Oral, daily TraZODone HCl Oral 50 mg, daily The source(s) of the original Home Medication information: Not obtained. The following Medications were given to the patient in the Emergency Department: None. The following Medications were prescribed to the patient: None.
--- NOTE | 2016-09-04 02:52 | ED MED RECONCILIATION SUMMARY ---
Patient: AUTUMN AGUDELO Medication Reconciliation Report [facility] VisitID: [id number] [address] [place] [address] 41y, F Registration Date/Time: 09/04/2016 Weight: 68.0 kg Height/Length: 65 in. BMI: 25.0 ALLERGIES: No Known Drug Allergy The patient's Home Medications are listed below: THE FOLLOWING MEDICATIONS NEED TO BE RECONCILED: Citalopram Hydrobromide Oral daily Omeprazole Oral 20 mg, daily Propranolol HCl Oral, daily TraZODone HCl Oral 50 mg, daily The source(s) of the original Home Medication information: Not obtained. The following Medications were given to the patient in the Emergency Department: None. The following Medications were prescribed to the patient: None.
--- NOTE | 2016-09-04 02:52 | ED MAR SUMMARY ---
..... Medication Administration Record [facility] [address] [place], [place] [id number] Patient: AUTUMN AGUDELO Visit ID: [id number] 41y, F Weight: 68.0 kg Height/Length: 65 in BMI: 25 ALLERGIES: No Known Drug Allergy
--- NOTE | 2016-09-04 02:52 | ED MAR SUMMARY ---
..... Medication Administration Record [facility] [address] [place] [id number] Patient: AUTUMN AGUDELO Visit ID: [id number] 41y, F Weight: 68.0 kg Height/Length: 65 in BMI: 25 ALLERGIES: No Known Drug Allergy
== END 2016-09-04 02:47 | disposition left against medical advice (07) ==
LOC: ED SRH 02:27
DX: Z53.21 Procedure and treatment not carried out due to patient leaving prior to being seen by health care provider (principal)

== ENCOUNTER 2016-09-04 03:02 | Emergency (ER) | payer OTHER ==
--- NOTE | 2016-09-04 03:25 | ED ORDER SUMMARY ---
..... Patient: AUTUMN AGUDELO OrderSheet [facility] VisitID: [id number] [address] [place] [address] 41y, F Registration Date/Time: 09/04/2016 ORDER SHEET Weight: 68.0 kg (stated) Allergies: No Known Drug Allergy GENERAL ORDERS: MEDICATION ORDERS: Toradol IM 60 mg (NOW) (03:25 09/04/2016 Anneliese TITUS) (3:29 Bry Choudhary.NHipolito) IV FLUIDS: ORDER SHEET NOTES: [Electronically signed by Fredy Sood R.N. (04:01 09/04/2016)] [Electronically signed by Milan Jain MD (09:32 09/05/2016)] [Electronically locked/signed by Fredy Sood R.N. (04:01 09/04/2016)]
--- NOTE | 2016-09-04 03:25 | ED CLINICAL REPORT ---
Clinical Report - Physicians/Mid Levels [facility] [address] [place] [address] 09/04/2016 3:02 Patient: AUTUMN AGUDELO Time Seen: 03:10. Arrived- By ambulance. Historian- patient and EMS personnel. HISTORY OF PRESENT ILLNESS Chief Complaint: CHRONIC BACK PAIN. It is described as being in the area of the lower lumbar spine and radiating to the left lower extremity. Onset- many years ago and it is still present. Mild, intermittent bladder dysfunction (chronically - she says this happens when she coughs or strains). The bladder dysfunction is described as incontinence. No bowel dysfunction, sensory loss or motor loss. Patient denies a recent injury. REVIEW OF SYSTEMS No chills, fever, sweats, calf pain or chest pain. No cough, difficulty breathing, pedal edema, palpitations or abdominal pain. No constipation, diarrhea, nausea or vomiting. All systems otherwise negative, except as recorded above. SOCIAL HISTORY Current every day heavy tobacco smoker (cigarette)- less than 1 pack per day. Occasional alcohol use. History of drug use: methamphetamines. Recently used drugs. FAMILY HISTORY Denies family medical history. ADDITIONAL NOTES The nursing notes have been reviewed. PHYSICAL EXAM Vital Signs: 09/04/2016 03:06 BP: 123/75. HR: 94. RR: 16. O2 saturation: 99%. Temp: 98.5 F. Have been reviewed. Appearance: Alert. ENT: Pharynx normal. Neck: Painless ROM. CVS: Heart sounds normal. Pulses normal. Respiratory: No respiratory distress. Breath sounds normal. Abdomen: No visible injury. Soft and nontender. Bowel sounds normal. No organomegaly. No mass. Back: Soft tissue tenderness. Mildly limited ROM in the back- in the lumbar spine: decreased flexion, extension, right lateral bending, left lateral bending and rotation to the right and left. No vertebral point tenderness. Skin: Skin warm and dry. Normal skin color. No rash. Normal skin turgor. Extremities: Extremities exhibit normal ROM. Neuro: No motor deficit. No sensory deficit. PROGRESS AND PROCEDURES Course of Care: Patient is stable. Patient/family counseled. Old medical records reviewed. Disposition: Discharged. Condition: stable. CLINICAL IMPRESSION Chronic right sided sciatica with low back pain. INSTRUCTIONS Apply ice for 20 minutes four times a day until better. Don't apply ice directly to skin and don't use while asleep. No lifting greater than 5 lbs, no bending or stooping or no prolonged sitting. Warnings: GENERAL WARNINGS: Return or contact your physician immediately if your condition worsens or changes unexpectedly, if not improving as expected, or if other problems arise. OTC Medications: Motrin (available over the counter): take according to label instructions. Understanding of the discharge instructions verbalized by patient. Follow-up with: [facility], , , [address], , [place], [address] Follow up tomorrow. Call for an appointment. (Electronically signed by Milan Jain MD 09/05/2016 9:32)
--- NOTE | 2016-09-04 03:25 | ED NURSING NOTES ---
Clinical Report - Nurses [facility] [place] [address] 09/04/2016 3:02 Patient: AUTUMN AGUDELO TRIAGE Triage time 0306 AM. Acuity: LEVEL 4. Chief Complaint: BACK PAIN. Alert. No acute distress. --03:09 Fredy Sood R.N. 03:06 09/04/16. BP: 123/75. HR: 94. RR: 16. O2 saturation: 99%. Temp: 98.5 F. Pain level now 04/14. --03:09 Fredy Sood R.N. Weight: 68 kg stated. Height/Length: 67 inches Per Patient. BMI: 23.5. --03:17 Fredy Sood R.N. Medications Citalopram Hydrobromide Oral daily. Omeprazole Oral 20 mg, daily. Propranolol HCl Oral, daily. TraZODone HCl Oral 50 mg, daily. --04:00 Fredy Sood R.N. Allergies No Known Drug Allergy. --04:00 Fredy Sood R.N. 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 SOCIAL HX: Heavy tobacco smoker (cigarette)- less than 1 pack per day. Occasional alcohol use. History of drug use: methamphetamines. Recently used drugs today. --03:09 Fredy Sood R.N. ( Patient presents to the ED within the hour of leaving the ED AMA. Patient states that she feels that she is ready to be seen in the ER and is ambulatory [facility]. Patient complains of total chronic body pain and states that she is experiencing a "flare up." Patient states "I have taken everything that you can think of for the pain." Patient laying on the bed "tweaking." Patient states that the last time she used meth was today.). --03:18 Fredy Sood R.N. PROBLEMS: Abscess. Lifestyle / Substance Problems. Cellulitis. Immunizations. LNMP - Last Normal Menstrual Period. Lumbar Strain. Reflux. Migraine Headache. --04:00 Fredy Sood R.N. Pain contract [Resolved]. --04:00 Fredy Sood R.N. ADDITIONAL SURGERIES: Carpal Tunnel Surgery. Hysterectomy. Shoulder Surgery. Sinus Surgery. Tubal Ligation. --04:00 Fredy Sood R.N. Interventions ID band on patient. To treatment room. --03:09 Fredy Sood R.N. PHYSICAL ASSESSMENT Ambulatory to room. GENERAL / NEURO / PSYCH: Alert. Oriented X 4. Appears in no acute distress. Appears in pain and anxious. RESPIRATORY: Respirations not labored. Chest nontender. Breath sounds within normal limits. CVS: Normal heart rate and rhythm. Capillary refill less than 2 seconds. GI / : Abdomen soft and nontender. Bowel sounds within normal limits. EXTREMITIES: Sensation intact in extremities. ROM of extremities within normal limits. BACK: Limited ROM of the neck and back. --03:09 Fredy Sood R.N. NURSING PROGRESS NOTES 03:29 09/04/2016 Toradol (Ketorolac Tromethamine) IM 60 mg given. Given in the left anterior lateral thigh (split dose). Allergies verified and confirmed 5 rights. --03:29 Fredy Sood R.N. 03:52 09/04/2016 Toradol IM Response: no adverse reaction symptoms are the same. The patient feels the same. --03:52 Fredy Sood R.N. DISPOSITION / DISCHARGE <<STRICKEN ENTRY-- Condition at departure: improved and stable. No learning barriers present. Discharge instructions provided and reviewed with the patient. Patient verbalized understanding. Written instructions provided in Nauruan. ( Taught pt to keep laceration clean and dry, should heal within 7-10. Taught pt S/S of infection: purulent drainage, redness, worsening pain.). The patient was discharged by the physician. She was discharged home and unaccompanied at time of discharge. She left the Emergency Department ambulatory and via private vehicle. Patient driving. FALL RISK ASSESSMENT: Fall risk assessment completed. No fall risk identified. --03:23 AliM --END STRIKE>> Charted On Wrong Patient --03:56 AliM <<STRICKEN ENTRY-- 03:20 09/04/16. BP: unable to obtain. HR: 88. RR: 16. O2 saturation: 95%. Temp: 98.3 F. Pain level now: 01/12. Additional comments: Pt stated she did not want BP taken. --03:23 AliM --END STRIKE>> Charted on wrong patient. --03:56 AliM Condition at departure: unchanged. The goals identified in the patient's plan of care were met. No learning barriers present. Discharge instructions provided and reviewed with the patient. Reviewed medication(s) side effects, precautions, dosing and course information. Prescription(s) given to the patient. Reviewed referral to a primary care physician. Patient verbalized understanding. Written instructions provided in N[place]uan. The patient was discharged home and unaccompanied at time of discharge. She left the Emergency Department ambulatory. FALL RISK ASSESSMENT: Fall risk assessment completed. No fall risk identified. --03:53 Fredy Sood R.N. Departure time: 0353 AM. --03:53 Fredy Sood R.N. Locked/Released at 09/04/2016 4:01 by Fredy Sood R.N.
--- NOTE | 2016-09-04 03:25 | ED ORDER SUMMARY ---
..... Patient: AUTUMN AGUDELO OrderSheet [facility] VisitID: [id number] [address] [place] [address] 41y, F Registration Date/Time: 09/04/2016 ORDER SHEET Weight: 68.0 kg (stated) Allergies: No Known Drug Allergy GENERAL ORDERS: MEDICATION ORDERS: Toradol IM 60 mg (NOW) (03:25 09/04/2016 Anneliese TITUS) (3:29 Bry Choudhary.NHipolito) IV FLUIDS: ORDER SHEET NOTES: [Electronically signed by Fredy Sood R.N. (04:01 09/04/2016)] [Electronically signed by Milan Jain MD (09:32 09/05/2016)] [Electronically locked/signed by Fredy Sood R.N. (04:01 09/04/2016)]
--- NOTE | 2016-09-04 03:25 | ED CLINICAL REPORT ---
Clinical Report - Physicians/Mid Levels [facility] [address] [place] [address] 09/04/2016 3:02 Patient: AUTUMN AGUDELO Time Seen: 03:10. Arrived- By ambulance. Historian- patient and EMS personnel. HISTORY OF PRESENT ILLNESS Chief Complaint: CHRONIC BACK PAIN. It is described as being in the area of the lower lumbar spine and radiating to the left lower extremity. Onset- many years ago and it is still present. Mild, intermittent bladder dysfunction (chronically - she says this happens when she coughs or strains). The bladder dysfunction is described as incontinence. No bowel dysfunction, sensory loss or motor loss. Patient denies a recent injury. REVIEW OF SYSTEMS No chills, fever, sweats, calf pain or chest pain. No cough, difficulty breathing, pedal edema, palpitations or abdominal pain. No constipation, diarrhea, nausea or vomiting. All systems otherwise negative, except as recorded above. SOCIAL HISTORY Current every day heavy tobacco smoker (cigarette)- less than 1 pack per day. Occasional alcohol use. History of drug use: methamphetamines. Recently used drugs. FAMILY HISTORY Denies family medical history. ADDITIONAL NOTES The nursing notes have been reviewed. PHYSICAL EXAM Vital Signs: 09/04/2016 03:06 BP: 123/75. HR: 94. RR: 16. O2 saturation: 99%. Temp: 98.5 F. Have been reviewed. Appearance: Alert. ENT: Pharynx normal. Neck: Painless ROM. CVS: Heart sounds normal. Pulses normal. Respiratory: No respiratory distress. Breath sounds normal. Abdomen: No visible injury. Soft and nontender. Bowel sounds normal. No organomegaly. No mass. Back: Soft tissue tenderness. Mildly limited ROM in the back- in the lumbar spine: decreased flexion, extension, right lateral bending, left lateral bending and rotation to the right and left. No vertebral point tenderness. Skin: Skin warm and dry. Normal skin color. No rash. Normal skin turgor. Extremities: Extremities exhibit normal ROM. Neuro: No motor deficit. No sensory deficit. PROGRESS AND PROCEDURES Course of Care: Patient is stable. Patient/family counseled. Old medical records reviewed. Disposition: Discharged. Condition: stable. CLINICAL IMPRESSION Chronic right sided sciatica with low back pain. INSTRUCTIONS Apply ice for 20 minutes four times a day until better. Don't apply ice directly to skin and don't use while asleep. No lifting greater than 5 lbs, no bending or stooping or no prolonged sitting. Warnings: GENERAL WARNINGS: Return or contact your physician immediately if your condition worsens or changes unexpectedly, if not improving as expected, or if other problems arise. OTC Medications: Motrin (available over the counter): take according to label instructions. Understanding of the discharge instructions verbalized by patient. Follow-up with: [facility], , , [address], , [place], [address] Follow up tomorrow. Call for an appointment. (Electronically signed by Milan Jain MD 09/05/2016 9:32)
--- NOTE | 2016-09-04 03:25 | ED NURSING NOTES ---
Clinical Report - [facility] [place] [address] 09/04/2016 3:02 Patient: AUTUMN AGUDELO TRIAGE Triage time 0306 AM. Acuity: LEVEL 4. Chief Complaint: BACK PAIN. Alert. No acute distress. --03:09 Fredy Sood R.N. 03:06 09/04/16. BP: 123/75. HR: 94. RR: 16. O2 saturation: 99%. Temp: 98.5 F. Pain level now 04/14. --03:09 Fredy Sood R.N. Weight: 68 kg stated. Height/Length: 67 inches Per Patient. BMI: 23.5. --03:17 Fredy Sood R.N. Medications Citalopram Hydrobromide Oral daily. Omeprazole Oral 20 mg, daily. Propranolol HCl Oral, daily. TraZODone HCl Oral 50 mg, daily. --04:00 Fredy Sood R.N. Allergies No Known Drug Allergy. --04:00 Fredy Sood R.N. 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 SOCIAL HX: Heavy tobacco smoker (cigarette)- less than 1 pack per day. Occasional alcohol use. History of drug use: methamphetamines. Recently used drugs today. --03:09 Fredy Sood R.N. ( Patient presents to the ED within the hour of leaving the ED AMA. Patient states that she feels that she is ready to be seen in the ER and is ambulatory [facility]. Patient complains of total chronic body pain and states that she is experiencing a "flare up." Patient states "I have taken everything that you can think of for the pain." Patient laying on the bed "tweaking." Patient states that the last time she used meth was today.). --03:18 Fredy Sood R.N. PROBLEMS: Abscess. Lifestyle / Substance Problems. Cellulitis. Immunizations. LNMP - Last Normal Menstrual Period. Lumbar Strain. Reflux. Migraine Headache. --04:00 Fredy Sood R.N. Pain contract [Resolved]. --04:00 Fredy Sood R.N. ADDITIONAL SURGERIES: Carpal Tunnel Surgery. Hysterectomy. Shoulder Surgery. Sinus Surgery. Tubal Ligation. --04:00 Fredy Sood R.N. Interventions ID band on patient. To treatment room. --03:09 Fredy Sood R.N. PHYSICAL ASSESSMENT Ambulatory to room. GENERAL / NEURO / PSYCH: Alert. Oriented X 4. Appears in no acute distress. Appears in pain and anxious. RESPIRATORY: Respirations not labored. Chest nontender. Breath sounds within normal limits. CVS: Normal heart rate and rhythm. Capillary refill less than 2 seconds. GI / : Abdomen soft and nontender. Bowel sounds within normal limits. EXTREMITIES: Sensation intact in extremities. ROM of extremities within normal limits. BACK: Limited ROM of the neck and back. --03:09 Fredy Sood R.N. NURSING PROGRESS NOTES 03:29 09/04/2016 Toradol (Ketorolac Tromethamine) IM 60 mg given. Given in the left anterior lateral thigh (split dose). Allergies verified and confirmed 5 rights. --03:29 Fredy Sood R.N. 03:52 09/04/2016 Toradol IM Response: no adverse reaction symptoms are the same. The patient feels the same. --03:52 Fredy Sood R.N. DISPOSITION / DISCHARGE <<STRICKEN ENTRY-- Condition at departure: improved and stable. No learning barriers present. Discharge instructions provided and reviewed with the patient. Patient verbalized understanding. Written instructions provided in [place]. ( Taught pt to keep laceration clean and dry, should heal within 7-10. Taught pt S/S of infection: purulent drainage, redness, worsening pain.). The patient was discharged by the physician. She was discharged home and unaccompanied at time of discharge. She left the Emergency Department ambulatory and via private vehicle. Patient driving. FALL RISK ASSESSMENT: Fall risk assessment completed. No fall risk identified. --03:23 AliM --END STRIKE>> Charted On Wrong Patient --03:56 AliM <<STRICKEN ENTRY-- 03:20 09/04/16. BP: unable to obtain. HR: 88. RR: 16. O2 saturation: 95%. Temp: 98.3 F. Pain level now: 01/12. Additional comments: Pt stated she did not want BP taken. --03:23 AliM --END STRIKE>> Charted on wrong patient. --03:56 AliM Condition at departure: unchanged. The goals identified in the patient's plan of care were met. No learning barriers present. Discharge instructions provided and reviewed with the patient. Reviewed medication(s) side effects, precautions, dosing and course information. Prescription(s) given to the patient. Reviewed referral to a primary care physician. Patient verbalized understanding. Written instructions provided in [place]. The patient was discharged home and unaccompanied at time of discharge. She left the Emergency Department ambulatory. FALL RISK ASSESSMENT: Fall risk assessment completed. No fall risk identified. --03:53 Fredy Sood R.N. Departure time: 0353 AM. --03:53 Fredy Sood R.N. Locked/Released at 09/04/2016 4:01 by Fredy Sood R.N.
--- NOTE | 2016-09-05 09:32 | ED MED RECONCILIATION SUMMARY ---
Patient: AUTUMN AGUDELO Medication Reconciliation Report [facility] VisitID: [id number] [address] [place] [address] 41y, F Registration Date/Time: 09/04/2016 Weight: 68.0 kg Height/Length: 67 in. BMI: 23.5 ALLERGIES: No Known Drug Allergy The patient's Home Medications are listed below: THE FOLLOWING MEDICATIONS NEED TO BE RECONCILED: Citalopram Hydrobromide Oral daily Omeprazole Oral 20 mg, daily Propranolol HCl Oral, daily TraZODone HCl Oral 50 mg, daily The source(s) of the original Home Medication information: Not obtained. The following Medications were given to the patient in the Emergency Department: Toradol [IM] IM 60 mg, administered: 09/04/2016 3:29:00 AM The following Medications were prescribed to the patient: Motrin (available over the counter): take according to label instructions. -- Milan Jain MD
--- NOTE | 2016-09-05 09:32 | ED MED RECONCILIATION SUMMARY ---
Patient: AUTUMN AGUDELO Medication Reconciliation Report [facility] VisitID: [id number] [address] [place] [address] 41y, F Registration Date/Time: 09/04/2016 Weight: 68.0 kg Height/Length: 67 in. BMI: 23.5 ALLERGIES: No Known Drug Allergy The patient's Home Medications are listed below: THE FOLLOWING MEDICATIONS NEED TO BE RECONCILED: Citalopram Hydrobromide Oral daily Omeprazole Oral 20 mg, daily Propranolol HCl Oral, daily TraZODone HCl Oral 50 mg, daily The source(s) of the original Home Medication information: Not obtained. The following Medications were given to the patient in the Emergency Department: Toradol [IM] IM 60 mg, administered: 09/04/2016 3:29:00 AM The following Medications were prescribed to the patient: Motrin (available over the counter): take according to label instructions. -- Milan Jain MD
--- NOTE | 2016-09-05 09:32 | ED MAR SUMMARY ---
..... Medication Administration Record [facility] [address] [place] [address] Patient: AUTUMN AGUDELO Visit ID: [id number] 41y, F Weight: 68.0 kg Height/Length: 67 in BMI: 23.5 ALLERGIES: No Known Drug Allergy Given 03:29 09/04/2016 Fredy Sood, RHipolitoNHipolito Medication Administered: TORADOL [IM] (KETOROLAC TROMETHAMINE), Dose: 60 mg IM. Medication Ordered: Toradol IM 60 mg (NOW).
--- NOTE | 2016-09-05 09:32 | ED MAR SUMMARY ---
..... Medication Administration Record [facility] [address] [place] [address] Patient: AUTUMN AGUDELO Visit ID: [id number] 41y, F Weight: 68.0 kg Height/Length: 67 in BMI: 23.5 ALLERGIES: No Known Drug Allergy Given 03:29 09/04/2016 Fredy Sood, RHipolitoNHipolito Medication Administered: TORADOL [IM] (KETOROLAC TROMETHAMINE), Dose: 60 mg IM. Medication Ordered: Toradol IM 60 mg (NOW).
--- NOTE | 2016-09-05 09:32 | ED DISCHARGE INSTRUCTIONS ---
Patient: AUTUMN AGUDELO General Instructions [facility] VisitID: [id number] [address], [place] [address] 41y, F Registration Date/Time: 09/04/2016 Chronic right sided sciatica with low back pain. INSTRUCTIONS Apply ice for 20 minutes four times a day until better. Don't apply ice directly to skin and don't use while asleep. No lifting greater than 5 lbs, no bending or stooping or no prolonged sitting. Warnings: GENERAL WARNINGS: Return or contact your physician immediately if your condition worsens or changes unexpectedly, if not improving as expected, or if other problems arise. OTC Medications: Motrin (available over the counter): take according to label instructions. Understanding of the discharge instructions verbalized by patient. Follow-up with: [facility], , , [address], , [place], [address] Follow up tomorrow. Call for an appointment. ADDITIONAL INFORMATION Sciatica Sciatica ("Lumbar Radiculopathy") causes a pain that spreads from the lower back down into the buttock, hip and leg. Sometimes leg pain can occur without any back pain. Sciatica is due to irritation or pressure on a spinal nerve as it comes out of the spinal canal. This is most often due to a bulge or rupture of a nearby spinal disk (the cartilage cushion between each spinal bone), which presses on a nearby nerve. Other causes include spinal stenosis (narrowing of the spinal canal) and spasm of the pyriform muscle (a muscle in the buttocks that the sciatic nerve passes through). Sciatica may begin after a sudden twisting/bending force (such as in a car accident), or sometimes after a simple awkward movement. In either case, muscle spasm is commonly present and contributes to the pain. The diagnosis of sciatica is made from the symptoms and physical exam. Unless you had a physical injury (such as a car accident or fall), X-rays are usually not ordered for the initial evaluation of sciatica because the nerves and disks cannot be seen on an x-ray. If signs of a compressed nerve are present (for example, loss of tendon reflex or strength in the leg), an MRI (magnetic resonance imaging) scan will need to be scheduled as an outpatient. Most sciatica (80-90%) gets better with medicine, exercise, physical therapy. If symptoms continue after at least three months of medical treatment, surgery may be considered. Home Care: You may need to stay in bed the first few days. But, as soon as possible, begin sitting or walking to avoid problems with prolonged bed rest. When in bed, try to find a position of comfort. A firm mattress is best. Try lying flat on your back with pillows under your knees. You can also try lying on your side with your knees bent up towards your chest and a pillow between your knees. Avoid prolonged sitting. This puts more stress on the lower back than standing or walking. Some persons find relief with heat (hot shower, hot bath or heating pad) and massage, while others prefer cold packs (crushed or cubed ice in a plastic bag, wrapped in a towel). Try both and use the method that feels best for 20 minutes several times a day. You may use acetaminophen (Tylenol) or ibuprofen (Motrin, Advil) to control pain, unless another pain medicine was prescribed. [ NOTE: If you have chronic liver or kidney disease or ever had a stomach ulcer or GI bleeding, talk with your doctor before using these medicines.] Be aware of safe lifting methods and do not lift anything over 15 pounds until all the pain is gone. Follow Up with your doctor or this facility if your symptoms do not start to improve after one week. Physical therapy or further testing may be needed. [NOTE: If X-rays were taken, they will be reviewed by a radiologist. You will be notified of any new findings that may affect your care.] Get Prompt Medical Attention if any of the following occur: Pain becomes worse, not controlled by the prescribed medicine Weakness or numbness in one or both legs Numbness in the groin, genital area Loss of bowel or bladder control Ibuprofen Oral tablet What is this medicine? IBUPROFEN (eye BYOO proe fen) is a non-steroidal anti-inflammatory drug (NSAID). It is used for dental pain, fever, headaches or migraines, osteoarthritis, rheumatoid arthritis, or painful monthly periods. It can also relieve minor aches and pains caused by a cold, flu, or sore throat. How should I use this medicine? Take this medicine by mouth with a glass of water. Follow the directions on the prescription label. Take this medicine with food if your stomach gets upset. Try to not lie down for at least 10 minutes after you take the medicine. Take your medicine at regular intervals. Do not take your medicine more often than directed. A special MedGuide will be given to you by the pharmacist with each prescription and refill. Be sure to read this information carefully each time. Talk to your sheetfed press operator regarding the use of this medicine in children. Special care may be needed. What side effects may I notice from receiving this medicine? Side effects that you should report to your doctor or health rental boats caretaker as soon as possible: allergic reactions like skin rash, itching or hives, swelling of the face, lips, or tongue black or bloody stools, blood in the urine or in vomit breathing problems changes in vision chest pain general ill feeling or flu-like symptoms nausea or vomiting redness, blistering, peeling or loosening of the skin, including inside the mouth slurred speech or weakness on one side of the body stomach pain unexplained weight gain or swelling unusually weak or tired yellowing of eyes or skin Side effects that usually do not require medical attention (report to your doctor or health rental boats caretaker if they continue or are bothersome): constipation or diarrhea dizziness gas or heartburn stomach upset What may interact with this medicine? Do not take this medicine with any of the following medications: cidofovir ketorolac methotrexate pemetrexed This medicine may also interact with the following medications: alcohol aspirin diuretics lithium other drugs for inflammation like prednisone warfarin What if I miss a dose? If you miss a dose, take it as soon as you can. If it is almost time for your next dose, take only that dose. Do not take double or extra doses. Where should I keep my medicine? Keep out of the reach of children. Store at room temperature between 15 and 30 degrees C (59 and 86 degrees F). Keep container tightly closed. Throw away any unused medicine after the expiration date. What should I tell my health care provider before I take this medicine? They need to know if you have any of these conditions: asthma cigarette smoker drink more than 3 alcohol containing drinks a day heart disease or circulation problems such as heart failure or leg edema (fluid retention) high blood pressure kidney disease liver disease stomach bleeding or ulcers an unusual or allergic reaction to ibuprofen, aspirin, other NSAIDS, other medicines, foods, dyes, or preservatives or trying to get breast-feeding What should I watch for while using this medicine? Tell your doctor or healthcare professional if your symptoms do not start to get better or if they get worse. This medicine does not prevent heart attack or stroke. In fact, this medicine may increase the chance of a heart attack or stroke. The chance may increase with longer use of this medicine and in people who have heart disease. If you take aspirin to prevent heart attack or stroke, talk with your doctor or health rental boats caretaker. Do not take other medicines that contain aspirin, ibuprofen, or naproxen with this medicine. Side effects such as stomach upset, nausea, or ulcers may be more likely to occur. Many medicines available without a prescription should not be taken with this medicine. This medicine can cause ulcers and bleeding in the stomach and intestines at any time during treatment. Ulcers and bleeding can happen without warning symptoms and can cause . To reduce your risk, do not smoke cigarettes or drink alcohol while you are taking this medicine. You may get drowsy or dizzy. Do not drive, use machinery, or do anything that needs mental alertness until you know how this medicine affects you. Do not stand or sit up quickly, especially if you are an older patient. This reduces the risk of dizzy or fainting spells. This medicine can cause you to bleed more easily. Try to avoid damage to your teeth and gums when you brush or floss your teeth. You have been given the following additional information: Back Pain W/ Sciatica Ibuprofen Oral tablet No lifting greater than 5 lbs, no bending or stooping or no prolonged sitting. (Electronically signed by Milan Jain MD 09/05/2016 9:32)
--- NOTE | 2016-09-05 09:32 | ED DISCHARGE INSTRUCTIONS ---
Patient: AUTUMN AGUDELO General Instructions [facility] VisitID: [id number] [address], [place] [address] 41y, F Registration Date/Time: 09/04/2016 Chronic right sided sciatica with low back pain. INSTRUCTIONS Apply ice for 20 minutes four times a day until better. Don't apply ice directly to skin and don't use while asleep. No lifting greater than 5 lbs, no bending or stooping or no prolonged sitting. Warnings: GENERAL WARNINGS: Return or contact your physician immediately if your condition worsens or changes unexpectedly, if not improving as expected, or if other problems arise. OTC Medications: Motrin (available over the counter): take according to label instructions. Understanding of the discharge instructions verbalized by patient. Follow-up with: [facility], , , [address], , [place], [id number] Follow up tomorrow. Call for an appointment. ADDITIONAL INFORMATION Sciatica Sciatica ("Lumbar Radiculopathy") causes a pain that spreads from the lower back down into the buttock, hip and leg. Sometimes leg pain can occur without any back pain. Sciatica is due to irritation or pressure on a spinal nerve as it comes out of the spinal canal. This is most often due to a bulge or rupture of a nearby spinal disk (the cartilage cushion between each spinal bone), which presses on a nearby nerve. Other causes include spinal stenosis (narrowing of the spinal canal) and spasm of the pyriform muscle (a muscle in the buttocks that the sciatic nerve passes through). Sciatica may begin after a sudden twisting/bending force (such as in a car accident), or sometimes after a simple awkward movement. In either case, muscle spasm is commonly present and contributes to the pain. The diagnosis of sciatica is made from the symptoms and physical exam. Unless you had a physical injury (such as a car accident or fall), X-rays are usually not ordered for the initial evaluation of sciatica because the nerves and disks cannot be seen on an x-ray. If signs of a compressed nerve are present (for example, loss of tendon reflex or strength in the leg), an MRI (magnetic resonance imaging) scan will need to be scheduled as an outpatient. Most sciatica (80-90%) gets better with medicine, exercise, physical therapy. If symptoms continue after at least three months of medical treatment, surgery may be considered. Home Care: You may need to stay in bed the first few days. But, as soon as possible, begin sitting or walking to avoid problems with prolonged bed rest. When in bed, try to find a position of comfort. A firm mattress is best. Try lying flat on your back with pillows under your knees. You can also try lying on your side with your knees bent up towards your chest and a pillow between your knees. Avoid prolonged sitting. This puts more stress on the lower back than standing or walking. Some persons find relief with heat (hot shower, hot bath or heating pad) and massage, while others prefer cold packs (crushed or cubed ice in a plastic bag, wrapped in a towel). Try both and use the method that feels best for 20 minutes several times a day. You may use acetaminophen (Tylenol) or ibuprofen (Motrin, Advil) to control pain, unless another pain medicine was prescribed. [ NOTE: If you have chronic liver or kidney disease or ever had a stomach ulcer or GI bleeding, talk with your doctor before using these medicines.] Be aware of safe lifting methods and do not lift anything over 15 pounds until all the pain is gone. Follow Up with your doctor or this facility if your symptoms do not start to improve after one week. Physical therapy or further testing may be needed. [NOTE: If X-rays were taken, they will be reviewed by a radiologist. You will be notified of any new findings that may affect your care.] Get Prompt Medical Attention if any of the following occur: Pain becomes worse, not controlled by the prescribed medicine Weakness or numbness in one or both legs Numbness in the groin, genital area Loss of bowel or bladder control Ibuprofen Oral tablet What is this medicine? IBUPROFEN (eye BYOO proe fen) is a non-steroidal anti-inflammatory drug (NSAID). It is used for dental pain, fever, headaches or migraines, osteoarthritis, rheumatoid arthritis, or painful monthly periods. It can also relieve minor aches and pains caused by a cold, flu, or sore throat. How should I use this medicine? Take this medicine by mouth with a glass of water. Follow the directions on the prescription label. Take this medicine with food if your stomach gets upset. Try to not lie down for at least 10 minutes after you take the medicine. Take your medicine at regular intervals. Do not take your medicine more often than directed. A special MedGuide will be given to you by the pharmacist with each prescription and refill. Be sure to read this information carefully each time. Talk to your telephone solicitor regarding the use of this medicine in children. Special care may be needed. What side effects may I notice from receiving this medicine? Side effects that you should report to your doctor or health prompt care rn as soon as possible: allergic reactions like skin rash, itching or hives, swelling of the face, lips, or tongue black or bloody stools, blood in the urine or in vomit breathing problems changes in vision chest pain general ill feeling or flu-like symptoms nausea or vomiting redness, blistering, peeling or loosening of the skin, including inside the mouth slurred speech or weakness on one side of the body stomach pain unexplained weight gain or swelling unusually weak or tired yellowing of eyes or skin Side effects that usually do not require medical attention (report to your doctor or health prompt care rn if they continue or are bothersome): constipation or diarrhea dizziness gas or heartburn stomach upset What may interact with this medicine? Do not take this medicine with any of the following medications: cidofovir ketorolac methotrexate pemetrexed This medicine may also interact with the following medications: alcohol aspirin diuretics lithium other drugs for inflammation like prednisone warfarin What if I miss a dose? If you miss a dose, take it as soon as you can. If it is almost time for your next dose, take only that dose. Do not take double or extra doses. Where should I keep my medicine? Keep out of the reach of children. Store at room temperature between 15 and 30 degrees C (59 and 86 degrees F). Keep container tightly closed. Throw away any unused medicine after the expiration date. What should I tell my health care provider before I take this medicine? They need to know if you have any of these conditions: asthma cigarette smoker drink more than 3 alcohol containing drinks a day heart disease or circulation problems such as heart failure or leg edema (fluid retention) high blood pressure kidney disease liver disease stomach bleeding or ulcers an unusual or allergic reaction to ibuprofen, aspirin, other NSAIDS, other medicines, foods, dyes, or preservatives or trying to get breast-feeding What should I watch for while using this medicine? Tell your doctor or healthcare professional if your symptoms do not start to get better or if they get worse. This medicine does not prevent heart attack or stroke. In fact, this medicine may increase the chance of a heart attack or stroke. The chance may increase with longer use of this medicine and in people who have heart disease. If you take aspirin to prevent heart attack or stroke, talk with your doctor or health prompt care rn. Do not take other medicines that contain aspirin, ibuprofen, or naproxen with this medicine. Side effects such as stomach upset, nausea, or ulcers may be more likely to occur. Many medicines available without a prescription should not be taken with this medicine. This medicine can cause ulcers and bleeding in the stomach and intestines at any time during treatment. Ulcers and bleeding can happen without warning symptoms and can cause . To reduce your risk, do not smoke cigarettes or drink alcohol while you are taking this medicine. You may get drowsy or dizzy. Do not drive, use machinery, or do anything that needs mental alertness until you know how this medicine affects you. Do not stand or sit up quickly, especially if you are an older patient. This reduces the risk of dizzy or fainting spells. This medicine can cause you to bleed more easily. Try to avoid damage to your teeth and gums when you brush or floss your teeth. You have been given the following additional information: Back Pain W/ Sciatica Ibuprofen Oral tablet No lifting greater than 5 lbs, no bending or stooping or no prolonged sitting. (Electronically signed by Milan Jain MD 09/05/2016 9:32)
== END 2016-09-04 03:55 | disposition home or self-care (01) ==
LOC: ED SRH 03:02
DX: M54.41 Lumbago with sciatica, right side (principal); K21.9 Gastro-esophageal reflux disease without esophagitis; G43.909 Migraine, unspecified, not intractable, without status migrainosus; F17.210 Nicotine dependence, cigarettes, uncomplicated; Z79.01 Long term (current) use of anticoagulants; Z79.899 Other long term (current) drug therapy

== ENCOUNTER 2016-11-08 21:05 | Emergency (ER) | payer OTHER ==
--- NOTE | 2016-11-08 21:55 | ED ORDER SUMMARY ---
..... Patient: AUTUMN AGUDELO OrderSheet [facility] VisitID: [id number] [address] [place] [address] 41y, F Registration Date/Time: 11/08/2016 ORDER SHEET Weight: 65.7 kg (stated) Allergies: None GENERAL ORDERS: Culture, Wound Surface (Arm) (left forearm) Urgent (21:44 11/08/2016 [facility]) (21:49 KKnebel R.N.) MEDICATION ORDERS: Bupivacaine-Epinephrine Injection 0.5 % (soln) (NOW) (21:25 11/08/2016 [facility]) (21:29 obermark R.N.) Bactrim DS PO (Tablet 800-160 mg) 2 tabs (NOW) (21:45 11/08/2016 [facility]) (21:57 KKnebel R.N.) Keflex PO 500 mg (NOW) (21:45 11/08/2016 [facility]) (21:57 KKnebel R.N.) Toradol IM 60 mg (NOW) (21:45 11/08/2016 [facility]) (21:57 KKnebel R.N.) IV FLUIDS: ORDER SHEET NOTES: [Electronically signed by Ros Sandhu R.N. (22:11 11/08/2016)] [Electronically signed by Abhishek Jaquez DO (07:33 11/09/2016)] [Electronically locked/signed by Ros Sandhu R.N. (22:11 11/08/2016)]
--- NOTE | 2016-11-08 21:55 | ED NURSING NOTES ---
Clinical Report - Nurses [facility] [address] [place] [address] 11/08/2016 21:06 Patient: AUTUMN AGUDELO TRIAGE Triage time 21:Nov 08 2016. Acuity: LEVEL 4. Chief Complaint: LEFT UPPER EXTREMITY PAIN, SWELLING and REDNESS. Alert. No acute distress. ARIN COMA SCORE: Arin Coma Scale: 15- eyes open spontaneously (4); best verbal response- oriented x 4 (5); best motor response- obeys commands (6). --21:17 Ros Sandhu R.N. 21:12 11/08/16. BP: 118/74. HR: 90. RR: 16. O2 saturation: 100%. Temp: 97.6 F. Pain level now: 01/12. --21:17 Ros Sandhu R.N. Weight: 65.7 kg stated. Height/Length: 65 inches Per Patient. BMI: 24.1. --21:17 Ros Sandhu R.N. Medications Citalopram Hydrobromide Oral daily. Omeprazole Oral 20 mg, daily. Propranolol HCl Oral, daily. TraZODone HCl Oral 50 mg, daily. --21:14 Ros Sandhu R.N. Allergies None. --21:14 Ros Sandhu R.N. History Arrived by private vehicle. Historian: patient. Accompanied by family. This occurred today. No fever. 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 PAST MEDICAL HX: Tetanus status: up-to-date. Immunizations: up-to-date. The patient has had a hysterectomy. Denies current . SOCIAL HX: Current every day heavy tobacco smoker (cigarette)- less than 1 pack per day. Occasional alcohol use. History of drug use: heroin, methamphetamines, marijuana. Recently used drugs today. No infectious disease exposure. SELF HARM ASSESSMENT: A self harm assessment was performed. The patient answered "no" to the question "Do you have thoughts of harming or killing yourself?". FALL RISK ASSESSMENT: Fall risk assessment completed. No fall risk identified. NUTRITIONAL RISK ASSESSMENT: The nutritional risk assessment revealed no deficiencies. FUNCTIONAL ASSESSMENT: Functional assessment: no impairments noted. LEARNING NEEDS ASSESSMENT: The learning needs assessment revealed no barriers. ABUSE ASSESSMENT: Abuse assessment: The patient was asked "Do you feel safe in your home?". SKIN INTEGRITY ASSESSMENT: Skin integrity risk assessment completed. No skin integrity risk identified. --21:17 Ros Sandhu R.N. PROBLEMS: Sciatica. Abscess. Lifestyle / Substance Problems. Cellulitis. Immunizations. LNMP - Last Normal Menstrual Period. Lumbar Strain. Reflux. Migraine Headache. --21:14 Ros Sandhu R.N. Pain contract [Resolved]. --:14 Ros Sandhu R.N. ADDITIONAL SURGERIES: Carpal Tunnel Surgery. Hysterectomy. Shoulder Surgery. Sinus Surgery. Tubal Ligation. --21:14 Ros Sandhu R.N. Interventions ID band on patient. To room. --21:17 Ros Sandhu R.N. PHYSICAL ASSESSMENT Ambulatory to room. GENERAL / NEURO / PSYCH: Oriented X 4. Alert. Appears in pain. EXTREMITIES: Erythema on the extremities. Increased warmth on the extremities. Neuro-vascular status intact to the extremity. Left forearm: tenderness, swelling and erythema of the mid forearm. SKIN: Skin is warm and dry. --21:19 Ros Sandhu R.N. NURSING PROGRESS NOTES Patient identifiers checked. Call light placed in reach. Side rails up x 1. Bed placed in lowest position. Brakes of bed on. --21:19 Ros Sandhu R.N. :29 11/08/2016 Bupivacaine-Epinephrine (Bupivacaine-Epinephrine) Injection Injectable. (Done by the provider). --21:29 Albina Ramirez R.N. I & D: Incision and Drainage of abscess performed by ED physician. Assisted by one nurse and tech. The abscess is located on the left forearm. Preparation: Incision and Drainage tray set up (bupivicaine). Procedure: skin cleansed with Betadine; a moderate amount of pus was drained. Cavity was irrigated with saline and packed with gauze. Sample obtained for cultures. A dressing was applied (I & D). Post-procedure: she was stable, no complications, bleeding controlled and dressing intact. Estimated blood loss: <5cc. Total time of assist / procedure: 15 minutes. --21:48 Ros Sandhu R.N. 21:57 11/08/2016 Bactrim DS (Sulfamethoxazole-TMP DS) PO Tablets 2 tab given. Allergies verified and confirmed 5 rights. --21:57 Ros Sandhu R.N. 21:57 11/08/2016 Keflex (Cephalexin) PO Tablets 500 mg given. Allergies verified and confirmed 5 rights. --21:57 Ros Sandhu R.N. 21:57 11/08/2016 Toradol (Ketorolac Tromethamine) IM 60 mg given. Given in the right anterior lateral thigh. Allergies verified and confirmed 5 rights. --21:57 Ros Sandhu R.N. DISPOSITION / DISCHARGE Departure time: 22:Nov 08 2016. Condition at departure: improved. No learning barriers present. Discharge instructions provided and reviewed with the patient. Reviewed medication(s) side effects, precautions, dosing and course information. Reviewed wound care instructions. Reviewed referral to a primary care physician. Work note given. Patient verbalized understanding. Written instructions provided in Yi. The patient was discharged home and accompanied by registered land surveyor. She left the Emergency Department ambulatory and via private vehicle. Relationship Management Lead driving. FALL RISK ASSESSMENT: Fall risk assessment completed. No fall risk identified. --22:10 Ros Sandhu R.N. 22:09 11/08/16. BP: 114/75. HR: 79. RR: 16. O2 saturation: 100%. Pain level now: 03/15. --22:10 Ros Sandhu R.N. Locked/Released at 11/08/2016 22:11 by Ros Sandhu R.N.
--- NOTE | 2016-11-08 21:55 | ED NURSING NOTES ---
Clinical Report - Nurses [facility] [address] [place] [address] 11/08/2016 21:06 Patient: AUTUMN AGUDELO TRIAGE Triage time 21:Nov 08 2016. Acuity: LEVEL 4. Chief Complaint: LEFT UPPER EXTREMITY PAIN, SWELLING and REDNESS. Alert. No acute distress. ARIN COMA SCORE: Arin Coma Scale: 15- eyes open spontaneously (4); best verbal response- oriented x 4 (5); best motor response- obeys commands (6). --21:17 Ros Sandhu R.N. 21:12 11/08/16. BP: 118/74. HR: 90. RR: 16. O2 saturation: 100%. Temp: 97.6 F. Pain level now: 01/12. --21:17 Ros Sandhu R.N. Weight: 65.7 kg stated. Height/Length: 65 inches Per Patient. BMI: 24.1. --21:17 Ros Sandhu R.N. Medications Citalopram Hydrobromide Oral daily. Omeprazole Oral 20 mg, daily. Propranolol HCl Oral, daily. TraZODone HCl Oral 50 mg, daily. --21:14 Ros Sandhu R.N. Allergies None. --21:14 Ros Sandhu R.N. History Arrived by private vehicle. Historian: patient. Accompanied by family. This occurred today. No fever. 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 PAST MEDICAL HX: Tetanus status: up-to-date. Immunizations: up-to-date. The patient has had a hysterectomy. Denies current . SOCIAL HX: Current every day heavy tobacco smoker (cigarette)- less than 1 pack per day. Occasional alcohol use. History of drug use: heroin, methamphetamines, marijuana. Recently used drugs today. No infectious disease exposure. SELF HARM ASSESSMENT: A self harm assessment was performed. The patient answered "no" to the question "Do you have thoughts of harming or killing yourself?". FALL RISK ASSESSMENT: Fall risk assessment completed. No fall risk identified. NUTRITIONAL RISK ASSESSMENT: The nutritional risk assessment revealed no deficiencies. FUNCTIONAL ASSESSMENT: Functional assessment: no impairments noted. LEARNING NEEDS ASSESSMENT: The learning needs assessment revealed no barriers. ABUSE ASSESSMENT: Abuse assessment: The patient was asked "Do you feel safe in your home?". SKIN INTEGRITY ASSESSMENT: Skin integrity risk assessment completed. No skin integrity risk identified. --21:17 Ros Sandhu R.N. PROBLEMS: Sciatica. Abscess. Lifestyle / Substance Problems. Cellulitis. Immunizations. LNMP - Last Normal Menstrual Period. Lumbar Strain. Reflux. Migraine Headache. --21:14 Ros Sandhu R.N. Pain contract [Resolved]. --:14 Ros Sandhu R.N. ADDITIONAL SURGERIES: Carpal Tunnel Surgery. Hysterectomy. Shoulder Surgery. Sinus Surgery. Tubal Ligation. --21:14 Ros Sandhu R.N. Interventions ID band on patient. To room. --21:17 Ros Sandhu R.N. PHYSICAL ASSESSMENT Ambulatory to room. GENERAL / NEURO / PSYCH: Oriented X 4. Alert. Appears in pain. EXTREMITIES: Erythema on the extremities. Increased warmth on the extremities. Neuro-vascular status intact to the extremity. Left forearm: tenderness, swelling and erythema of the mid forearm. SKIN: Skin is warm and dry. --21:19 Ros Sandhu R.N. NURSING PROGRESS NOTES Patient identifiers checked. Call light placed in reach. Side rails up x 1. Bed placed in lowest position. Brakes of bed on. --21:19 Ros Sandhu R.N. :29 11/08/2016 Bupivacaine-Epinephrine (Bupivacaine-Epinephrine) Injection Injectable. (Done by the provider). --21:29 Albina Ramirez R.N. I & D: Incision and Drainage of abscess performed by ED physician. Assisted by one nurse and tech. The abscess is located on the left forearm. Preparation: Incision and Drainage tray set up (bupivicaine). Procedure: skin cleansed with Betadine; a moderate amount of pus was drained. Cavity was irrigated with saline and packed with gauze. Sample obtained for cultures. A dressing was applied (I & D). Post-procedure: she was stable, no complications, bleeding controlled and dressing intact. Estimated blood loss: <5cc. Total time of assist / procedure: 15 minutes. --21:48 Ros Sandhu R.N. 21:57 11/08/2016 Bactrim DS (Sulfamethoxazole-TMP DS) PO Tablets 2 tab given. Allergies verified and confirmed 5 rights. --21:57 Ros Sandhu R.N. 21:57 11/08/2016 Keflex (Cephalexin) PO Tablets 500 mg given. Allergies verified and confirmed 5 rights. --21:57 Ros Sandhu R.N. 21:57 11/08/2016 Toradol (Ketorolac Tromethamine) IM 60 mg given. Given in the right anterior lateral thigh. Allergies verified and confirmed 5 rights. --21:57 Ros Sandhu R.N. DISPOSITION / DISCHARGE Departure time: 22:Nov 08 2016. Condition at departure: improved. No learning barriers present. Discharge instructions provided and reviewed with the patient. Reviewed medication(s) side effects, precautions, dosing and course information. Reviewed wound care instructions. Reviewed referral to a primary care physician. Work note given. Patient verbalized understanding. Written instructions provided in Amharic. The patient was discharged home and accompanied by support assistant. She left the Emergency Department ambulatory and via private vehicle. Air Pollution Compliance Inspector driving. FALL RISK ASSESSMENT: Fall risk assessment completed. No fall risk identified. --22:10 Ros Sandhu R.N. 22:09 11/08/16. BP: 114/75. HR: 79. RR: 16. O2 saturation: 100%. Pain level now: 03/15. --22:10 Ros Sandhu R.N. Locked/Released at 11/08/2016 22:11 by Ros Sandhu R.N.
--- NOTE | 2016-11-08 21:55 | ED CLINICAL REPORT ---
Clinical Report - Physicians/Mid Levels [facility] [address] [place] [address] 11/08/2016 21:06 Patient: AUTUMN AGUDELO Time Seen: 21:12. Arrived- By private vehicle. Historian- patient. HISTORY OF PRESENT ILLNESS Chief Complaint: BOIL and TENDER AREA. This started several days ago and is still present. It was gradual in onset and has been waxing/waning. It is described as painful. It has been located on the left forearm. A and a possible cause has been identified (IDU). Similar symptoms previously: Several times. Recent medical care: The patient was seen recently by a health care provider. ( Seen Sep 14, [address] [facility] [place] [facility] for "agitation, stimulant abuse - by ?A-62). REVIEW OF SYSTEMS The patient has had a hysterectomy. No fever, chills, sore throat, cough or difficulty breathing. No headache, chest pain, abdominal pain, nausea or diarrhea. No difficulty with urination or vomiting. All systems otherwise negative, except as recorded above. PAST HISTORY Abscess. Lifestyle / Substance Problems. Cellulitis. Lumbar Strain. Reflux. Migraine Headache. SURGERIES: Carpal Tunnel Surgery. Hysterectomy. Shoulder Surgery. Sinus Surgery. Tubal Ligation. Medications: Citalopram Hydrobromide Oral daily. Omeprazole Oral 20 mg, daily. Propranolol HCl Oral, daily. TraZODone HCl Oral 50 mg, daily. Allergies: None. SOCIAL HISTORY Smoker- current status unknown. Occasional alcohol use. History of IV drug use: heroin, methamphetamines, marijuana. Residence: [place]. ADDITIONAL NOTES The nursing notes have been reviewed. PHYSICAL EXAM Vital Signs: 11/08/2016 21:12 BP: 118/74. HR: 90. RR: 16. O2 saturation: 100%. Temp: 97.6 F. Pain level now: 7/10. Appearance: Anxious. Patient in moderate distress. ENT: Pharynx normal. Neck: Neck supple. Respiratory: No respiratory distress. Breath sounds normal. Abdomen: Nontender. No organomegaly. Skin: Skin warm and dry. Single medium abscess with fluctuance and cellulitis to left forearm. No pointing or drainage. Extremities: No calf tenderness. (left forearm abscess). Neuro: Oriented X 3. No motor deficit. No sensory deficit. LABS, X-RAYS, AND EKG Microbiology: Abscess culture ordered. Pulse Oximetry: 11/08/2016 21:12 O2 saturation: 100%. (FIO2 - room air). Interpretation: normal. PROGRESS AND PROCEDURES Incision & Drainage of Abscess: The abscess is located in the left forearm. The risks of the procedure, benefits and alternatives were explained. Consent was obtained. Anesthesia provided using 0.50% Marcaine with epi. Skin cleansed with Betadine. The abscess was incised with a #11 surgical blade. A moderate amount of pus was drained. Cavity was irrigated with saline and packed with gauze. Sample obtained for cultures and gram stain. A dressing was applied. ( Pt did not tolerate local anesthetic very well and would not allow larger incision - demanded that I stop - and would not allow additional local anesthetic). Course of Care: Toradol 60mg IM given. Bactrim DS 2 tabs PO. Keflex 500 mg PO given. Pt with small to medium left forearm abscess and long history of IDU. She did not tolerate local anesthetic well and demanded I stop then requested we "just do it" - as did her S.O. in the room. Attempted small puncture incision and she would not allow this either - demanding I stop. She then stated again, "just do it" and additional anesthetic was placed and small incision made. Patient/family counseled. Old ED records reviewed. Patient has had multiple ED visits (JAVIER with 17 visits to 5 different ED's in past 12 months). Disposition: Discharged. Condition: stable and improved. CLINICAL IMPRESSION Single superficial abscess to the left upper extremity with incision and drainage. 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 INSTRUCTIONS Do not work for two days. Drink plenty of fluids. Do not smoke. Seek medical help to quit smoking. (You may leave the packing in place for 2 days, then remove the packing - you may see your primary care provider for packing removal). Warnings: Further evaluation is necessary. It is very important to follow up with a physician. CONTROLLED SUBSTANCE WARNINGS. GENERAL WARNINGS: Return or contact your physician immediately if your condition worsens or changes unexpectedly, if not improving as expected, or if other problems arise. Prescription Medications: Bactrim DS 800 mg / 160 mg: Take 1 tablet orally every 12 hours for 7 days. Dispense fourteen (14). No refills. Substitution is permissible. Keflex 500 mg: take 1 capsule orally every 6 hours for 7 days. No refills. Substitution is permissible. Ibuprofen 600mg tablets: take 1 tablet orally every 8 hours as needed for pain. Dispense thirty (30). No refills. Ultram 50 mg: take 1-2 orally every 8 hours as needed for pain. Dispense ten (10). No refills. Substitution is permissible. OTC Medications: Acetaminophen (available over the counter): take according to label instructions. Follow-up: Follow up with your doctor in two days. Follow-up with: Higinio Farley MD, [facility], , [facility] [address], [address] [place] [address] Follow up in two days. Follow-up with: [facility], , , [address] [place] [address], , [place], ; [facility], , , [address], [place] [address]; [facility], , [address] [place] [address] Follow up in two days. (Electronically signed by Abhishek Jaquez DO 11/09/2016 7:33)
--- NOTE | 2016-11-08 21:55 | ED ORDER SUMMARY ---
..... Patient: AUTUMN AGUDELO OrderSheet [facility] VisitID: [id number] [address] [place] [address] 41y, F Registration Date/Time: 11/08/2016 ORDER SHEET Weight: 65.7 kg (stated) Allergies: None GENERAL ORDERS: Culture, Wound Surface (Arm) (left forearm) Urgent (21:44 11/08/2016 [facility]) (21:49 KKnebel R.N.) MEDICATION ORDERS: Bupivacaine-Epinephrine Injection 0.5 % (soln) (NOW) (21:25 11/08/2016 [facility]) (21:29 obermark R.N.) Bactrim DS PO (Tablet 800-160 mg) 2 tabs (NOW) (21:45 11/08/2016 [facility]) (21:57 KKnebel R.N.) Keflex PO 500 mg (NOW) (21:45 11/08/2016 [facility]) (21:57 KKnebel R.N.) Toradol IM 60 mg (NOW) (21:45 11/08/2016 [facility]) (21:57 KKnebel R.N.) IV FLUIDS: ORDER SHEET NOTES: [Electronically signed by Ros Sandhu R.N. (22:11 11/08/2016)] [Electronically signed by Abhishek Jaquez DO (07:33 11/09/2016)] [Electronically locked/signed by Ros Sandhu R.N. (22:11 11/08/2016)]
--- NOTE | 2016-11-08 21:55 | ED CLINICAL REPORT ---
Clinical Report - Physicians/Mid Levels [facility] [address] [place] [address] 11/08/2016 21:06 Patient: AUTUMN AGUDELO Time Seen: 21:12. Arrived- By private vehicle. Historian- patient. HISTORY OF PRESENT ILLNESS Chief Complaint: BOIL and TENDER AREA. This started several days ago and is still present. It was gradual in onset and has been waxing/waning. It is described as painful. It has been located on the left forearm. A and a possible cause has been identified (IDU). Similar symptoms previously: Several times. Recent medical care: The patient was seen recently by a health care provider. ( Seen Sep 14, 2016 at [facility] [place] for "agitation, stimulant abuse - by ?A-62). REVIEW OF SYSTEMS The patient has had a hysterectomy. No fever, chills, sore throat, cough or difficulty breathing. No headache, chest pain, abdominal pain, nausea or diarrhea. No difficulty with urination or vomiting. All systems otherwise negative, except as recorded above. PAST HISTORY Abscess. Lifestyle / Substance Problems. Cellulitis. Lumbar Strain. Reflux. Migraine Headache. SURGERIES: Carpal Tunnel Surgery. Hysterectomy. Shoulder Surgery. Sinus Surgery. Tubal Ligation. Medications: Citalopram Hydrobromide Oral daily. Omeprazole Oral 20 mg, daily. Propranolol HCl Oral, daily. TraZODone HCl Oral 50 mg, daily. Allergies: None. SOCIAL HISTORY Smoker- current status unknown. Occasional alcohol use. History of IV drug use: heroin, methamphetamines, marijuana. Residence: [place]. ADDITIONAL NOTES The nursing notes have been reviewed. PHYSICAL EXAM Vital Signs: 11/08/2016 21:12 BP: 118/74. HR: 90. RR: 16. O2 saturation: 100%. Temp: 97.6 F. Pain level now: 7/10. Appearance: Anxious. Patient in moderate distress. ENT: Pharynx normal. Neck: Neck supple. Respiratory: No respiratory distress. Breath sounds normal. Abdomen: Nontender. No organomegaly. Skin: Skin warm and dry. Single medium abscess with fluctuance and cellulitis to left forearm. No pointing or drainage. Extremities: No calf tenderness. (left forearm abscess). Neuro: Oriented X 3. No motor deficit. No sensory deficit. LABS, X-RAYS, AND EKG Microbiology: Abscess culture ordered. Pulse Oximetry: 11/08/2016 21:12 O2 saturation: 100%. (FIO2 - room air). Interpretation: normal. PROGRESS AND PROCEDURES Incision & Drainage of Abscess: The abscess is located in the left forearm. The risks of the procedure, benefits and alternatives were explained. Consent was obtained. Anesthesia provided using 0.50% Marcaine with epi. Skin cleansed with Betadine. The abscess was incised with a #11 surgical blade. A moderate amount of pus was drained. Cavity was irrigated with saline and packed with gauze. Sample obtained for cultures and gram stain. A dressing was applied. ( Pt did not tolerate local anesthetic very well and would not allow larger incision - demanded that I stop - and would not allow additional local anesthetic). Course of Care: Toradol 60mg IM given. Bactrim DS 2 tabs PO. Keflex 500 mg PO given. Pt with small to medium left forearm abscess and long history of IDU. She did not tolerate local anesthetic well and demanded I stop then requested we "just do it" - as did her S.O. in the room. Attempted small puncture incision and she would not allow this either - demanding I stop. She then stated again, "just do it" and additional anesthetic was placed and small incision made. Patient/family counseled. Old ED records reviewed. Patient has had multiple ED visits (JAVIER with 17 visits to 5 different ED's in past 12 months). Disposition: Discharged. Condition: stable and improved. CLINICAL IMPRESSION Single superficial abscess to the left upper extremity with incision and drainage. 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 INSTRUCTIONS Do not work for two days. Drink plenty of fluids. Do not smoke. Seek medical help to quit smoking. (You may leave the packing in place for 2 days, then remove the packing - you may see your primary care provider for packing removal). Warnings: Further evaluation is necessary. It is very important to follow up with a physician. CONTROLLED SUBSTANCE WARNINGS. GENERAL WARNINGS: Return or contact your physician immediately if your condition worsens or changes unexpectedly, if not improving as expected, or if other problems arise. Prescription Medications: Bactrim DS 800 mg / 160 mg: Take 1 tablet orally every 12 hours for 7 days. Dispense fourteen (14). No refills. Substitution is permissible. Keflex 500 mg: take 1 capsule orally every 6 hours for 7 days. No refills. Substitution is permissible. Ibuprofen 600mg tablets: take 1 tablet orally every 8 hours as needed for pain. Dispense thirty (30). No refills. Ultram 50 mg: take 1-2 orally every 8 hours as needed for pain. Dispense ten (10). No refills. Substitution is permissible. OTC Medications: Acetaminophen (available over the counter): take according to label instructions. Follow-up: Follow up with your doctor in two days. Follow-up with: Higinio Farley MD, [facility], , [facility] [address], [address] [place] [address] Follow up in two days. Follow-up with: [facility], , , [address] [place] [address], , [place], ; [facility], , , [address], [place] [address]; [facility], , [address] [place] [address] Follow up in two days. (Electronically signed by Abhishek Jaquez DO 11/09/2016 7:33)
--- NOTE | 2016-11-09 07:33 | ED MED RECONCILIATION SUMMARY ---
Patient: AUTUMN AGUDELO Medication Reconciliation Report [facility] VisitID: [id number] [address] [place] [address] 41y, F Registration Date/Time: 11/08/2016 Weight: 65.7 kg Height/Length: 65 in. BMI: 24.1 ALLERGIES: None The patient's Home Medications are listed below: THE FOLLOWING MEDICATIONS NEED TO BE RECONCILED: Citalopram Hydrobromide Oral daily Omeprazole Oral 20 mg, daily Propranolol HCl Oral, daily TraZODone HCl Oral 50 mg, daily The source(s) of the original Home Medication information: Not obtained. The following Medications were given to the patient in the Emergency Department: Bupivacaine-Epinephrine [Injection] Injection, administered: 11/08/2016 9:29:00 PM Bactrim DS [PO] PO 2 tab, administered: 11/08/2016 9:57:00 PM Keflex [PO] PO 500 mg, administered: 11/08/2016 9:57:00 PM Toradol [IM] IM 60 mg, administered: 11/08/2016 9:57:00 PM The following Medications were prescribed to the patient: Acetaminophen (available over the counter): take according to label instructions. -- Abhishek Jaquez DO Bactrim DS 800 mg / 160 mg: Take 1 tablet orally every 12 hours for 7 days. Dispense fourteen (14). No refills. Substitution is permissible. -- Abhishek Jaquez DO Keflex 500 mg: take 1 capsule orally every 6 hours for 7 days. No refills. Substitution is permissible. -- Abhishek Jaquez DO Ibuprofen 600mg tablets: take 1 tablet orally every 8 hours as needed for pain. Dispense thirty (30). No refills. -- Abhishek Jaquez DO Ultram 50 mg: take 1-2 orally every 8 hours as needed for pain. Dispense ten (10). No refills. Substitution is permissible. -- Abhishek Jaquez DO
--- NOTE | 2016-11-09 07:33 | ED DISCHARGE INSTRUCTIONS ---
Patient: AUTUMN AGUDELO General Instructions [facility] VisitID: [id number] [address], [place] [address] 41y, F Registration Date/Time: 11/08/2016 Single superficial abscess to the left upper extremity with incision and drainage. 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 INSTRUCTIONS Do not work for two days. Drink plenty of fluids. Do not smoke. Seek medical help to quit smoking. (You may leave the packing in place for 2 days, then remove the packing - you may see your primary care provider for packing removal). Warnings: Further evaluation is necessary. It is very important to follow up with a physician. CONTROLLED SUBSTANCE WARNINGS. GENERAL WARNINGS: Return or contact your physician immediately if your condition worsens or changes unexpectedly, if not improving as expected, or if other problems arise. Prescription Medications: Bactrim DS 800 mg / 160 mg: Take 1 tablet orally every 12 hours for 7 days. Dispense fourteen (14). No refills. Substitution is permissible. Keflex 500 mg: take 1 capsule orally every 6 hours for 7 days. No refills. Substitution is permissible. Ibuprofen 600mg tablets: take 1 tablet orally every 8 hours as needed for pain. Dispense thirty (30). No refills. Ultram 50 mg: take 1-2 orally every 8 hours as needed for pain. Dispense ten (10). No refills. Substitution is permissible. OTC Medications: Acetaminophen (available over the counter): take according to label instructions. Follow-up: Follow up with your doctor in two days. Follow-up with: Higinio Farley MD, [facility], , [address] [place] [address] Follow up in two days. Follow-up with: [facility], , , [address] [place] [address], , [place], ; [facility], , , [address], [place] [address]; [facility], [facility], , [address] [place] [address] Follow up in two days. ADDITIONAL INFORMATION Abscess [Incision & Drainage] An abscess (sometimes called a boil) occurs when bacteria get trapped under the skin and begin to grow. Pus forms inside the abscess as the body responds to the bacteria. An abscess can occur with an insect bite, ingrown hair, blocked oil gland, pimple, cyst, or puncture wound. Treatment of your abscess has required an incision to drain the pus. If the abscess pocket was large, a gauze packing may have been inserted. This will need to be removed and possibly replaced on your next visit. Antibiotics are not required in the treatment of a simple abscess, unless the infection is spreading into the skin around the wound (known as cellulitis). Healing of the wound will take about one to two weeks depending on the size of the abscess. Healthy tissue will grow from the bottom and sides of the opening until it seals over. Home Care: The wound may drain for the first two days. Cover the wound with a clean dry dressing. If the dressing becomes soaked with blood or pus, change it. If a gauze packing was placed inside the abscess cavity, you may be advised to remove it yourself. You may do this in the shower. Once the packing is removed, you should wash the area in the shower or bath 3 to 4 times a day, until the skin opening has closed. If you were prescribed antibiotics, take them as directed until they are all gone. You may use acetaminophen (Tylenol) or ibuprofen (Motrin, Advil) to control pain, unless another pain medicine was prescribed. [ NOTE: If you have liver disease or ever had a stomach ulcer, talk with your doctor before using these medicines.] Follow Up with your doctor as advised by our staff. If a gauze packing was inserted in your wound, it should be removed in 1-2 days. Check your wound every day for the signs of worsening infection listed below. Get Prompt Medical Attention if any of the following occur: Increasing redness or swelling Red streaks in the skin leading away from the wound Increasing local pain or swelling Continued pus draining from the wound two days after treatment Fever of 100.4F (38C) or higher, or as directed by your healthcare provider How To Quit Smoking Smoking is one of the hardest habits to break. About half of all those who have ever smoked have been able to quit, and most of those (about 70%) who still smoke want to quit. Here are some of the best ways to stop smoking. Keep Trying: It takes most smokers about 8 tries before they are finally able to fully quit. So, the more often you try and fail, the better your chance of quitting the next time! So, don't give up! Go Cold [place]: Most ex-smokers quit cold turkey. Trying to cut back gradually doesn't seem to work as well, perhaps because it continues the smoking habit. Also, it is possible to fool yourself by inhaling more while smoking fewer cigarettes. This results in the same amount of nicotine in your body! Get Support: Support programs can make an important difference, especially for the heavy smoker. These groups offer lectures, methods to change your behavior and peer support. Call the free national Quitline for more information. 688-FFAQ-VZQ (944-249-8318). Low-cost or free programs are offered by many hospitals, local chapters of the [place] [employer] (437-979-9468) and the [place] [employer] (308-928-0037). Support at home is important too. Non-smokers can help by offering praise and encouragement. If the smoker fails to quit, encourage them to try again! Xlmi-Zhj-Ylhgnha Medicines: For those who can't quit on their own, Nicotine Replacement Therapy (NRT) may make quitting much easier. Certain aids such as the nicotine patch, gum and lozenge are available without a prescription. However, it is best to use these under the guidance of your doctor. The skin patch provides a steady supply of nicotine to the body. Nicotine gum and lozenge gives temporary bursts of low levels of nicotine. Both methods take the edge off the craving for cigarettes. WARNING: If you feel symptoms of nicotine overdose, such as nausea, vomiting, dizziness, weakness, or fast heartbeat, stop using these and see your doctor. Prescription Medicines: After evaluating your smoking patterns and prior attempts at quitting, your doctor may offer a prescription medicine such as bupropion (Zyban, Wellbutrin), varenicline (Chantix, Champix), a niocotine inhaler or nasal spray. Each has its unique advantage and side effects which your doctor can review with you. Health Benefits Of Quitting: The benefits of quitting start right away and keep improving the longer you go without smokin minutes: blood pressure and pulse return to normal 8 hours: oxygen levels return to normal 2 days: ability to smell and taste begins to improve as damaged nerves start to regrow 2-3 weeks: circulation and lung function improves 1-9 months: decreased cough, congestion and shortness of breath; less tired 1 year: risk of heart attack decreases by half 5 years: risk of lung cancer decreases by half; risk of stroke becomes the same as a non-smoker For information about how to quit smoking, visit the following links: National Cancer [place] , Clearing the Air, Quit Smoking Today - an online booklet. http://www.smokefree.gov/pubs/clearing_the_air.pdf Smokefree.gov http://smokefree.gov/ QuitNet http://www.quitnet.com/ Sulfamethoxazole, Trimethoprim Oral tablet What is this medicine? SULFAMETHOXAZOLE; TRIMETHOPRIM or SMX-TMP (suhl fuh meth OK kenyatta zohl; trye METH oh prim) is a combination of a sulfonamide antibiotic and a second antibiotic, trimethoprim. It is used to treat or prevent certain kinds of bacterial infections. It will not work for colds, flu, or other viral infections. How should I use this medicine? Take this medicine by mouth with a full glass of water. Follow the directions on the prescription label. Take your medicine at regular intervals. Do not take it more often than directed. Do not skip doses or stop your medicine early. Talk to your bulb grower regarding the use of this medicine in children. Special care may be needed. This medicine has been used in children as young as 2 months of age. What side effects may I notice from receiving this medicine? Side effects that you should report to your doctor or health wound care technician as soon as possible: allergic reactions like skin rash or hives, swelling of the face, lips, or tongue breathing problems fever or chills, sore throat irregular heartbeat, chest pain joint or muscle pain pain or difficulty passing urine red pinpoint spots on skin redness, blistering, peeling or loosening of the skin, including inside the mouth unusual bleeding or bruising unusually weak or tired yellowing of the eyes or skin Side effects that usually do not require medical attention (report to your doctor or health wound care technician if they continue or are bothersome): diarrhea dizziness headache loss of appetite nausea, vomiting nervousness What may interact with this medicine? Do not take this medicine with any of the following medications: aminobenzoate potassium dofetilide metronidazole This medicine may also interact with the following medications: CARLOS inhibitors like benazepril, enalapril, lisinopril, and ramipril cyclosporine digoxin diuretics indomethacin medicines for diabetes methenamine methotrexate phenytoin potassium supplements pyrimethamine sulfinpyrazone tricyclic antidepressants warfarin What if I miss a dose? If you miss a dose, take it as soon as you can. If it is almost time for your next dose, take only that dose. Do not take double or extra doses. Where should I keep my medicine? Keep out of the reach of children. Store at room temperature between 20 to 25 degrees C (68 to 77 degrees F). Protect from light. Throw away any unused medicine after the expiration date. What should I tell my health care provider before I take this medicine? They need to know if you have any of these conditions: anemia asthma being treated with anticonvulsants if you frequently drink alcohol containing drinks kidney disease liver disease low level of folic acid or [id number] dehydrogenase poor nutrition or malabsorption porphyria severe allergies thyroid disorder an unusual or allergic reaction to sulfamethoxazole, trimethoprim, sulfa drugs, other medicines, foods, dyes, or preservatives or trying to get breast-feeding What should I watch for while using this medicine? Tell your doctor or health wound care technician if your symptoms do not improve. Drink several glasses of water a day to reduce the risk of kidney problems. Do not treat diarrhea with over the counter products. Contact your doctor if you have diarrhea that lasts more than 2 days or if it is severe and watery. This medicine can make you more sensitive to the sun. Keep out of the sun. If you cannot avoid being in the sun, wear protective clothing and use a sunscreen. Do not use sun lamps or tanning beds/booths. Cephalexin Monohydrate Oral tablet What is this medicine? CEPHALEXIN (sef a YO in) is a cephalosporin antibiotic. It is used to treat certain kinds of bacterial infections It will not work for colds, flu, or other viral infections. How should I use this medicine? Take this medicine by mouth with a full glass of water. Follow the directions on the prescription label. This medicine can be taken with or without food. Take your medicine at regular intervals. Do not take your medicine more often than directed. Take all of your medicine as directed even if you think you are better. Do not skip doses or stop your medicine early. Talk to your bulb grower regarding the use of this medicine in children. While this drug may be prescribed for selected conditions, precautions do apply. What side effects may I notice from receiving this medicine? Side effects that you should report to your doctor or health wound care technician as soon as possible: allergic reactions like skin rash, itching or hives, swelling of the face, lips, or tongue breathing problems pain or trouble passing urine redness, blistering, peeling or loosening of the skin, including inside the mouth severe or watery diarrhea unusually weak or tired yellowing of the eyes, skin Side effects that usually do not require medical attention (report to your doctor or health wound care technician if they continue or are bothersome): gas or heartburn genital or anal irritation headache joint or muscle pain nausea, vomiting What may interact with this medicine? probenecid some other antibiotics What if I miss a dose? If you miss a dose, take it as soon as you can. If it is almost time for your next dose, take only that dose. Do not take double or extra doses. There should be at least 4 to 6 hours between doses. Where should I keep my medicine? Keep out of the reach of children. Store at room temperature between 59 and 86 degrees F (15 and 30 degrees C). Throw away any unused medicine after the expiration date. What should I tell my health care provider before I take this medicine? They need to know if you have any of these conditions: kidney disease stomach or intestine problems, especially colitis an unusual or allergic reaction to cephalexin, other cephalosporins, penicillins, other antibiotics, medicines, foods, dyes or preservatives or trying to get breast-feeding What should I watch for while using this medicine? Tell your doctor or health wound care technician if your symptoms do not begin to improve in a few days. Do not treat diarrhea with over the counter products. Contact your doctor if you have diarrhea that lasts more than 2 days or if it is severe and watery. If you have diabetes, you may get a false-positive result for sugar in your urine. Check with your doctor or health wound care technician. Ibuprofen Oral tablet What is this medicine? IBUPROFEN (eye BYOO proe fen) is a non-steroidal anti-inflammatory drug (NSAID). It is used for dental pain, fever, headaches or migraines, osteoarthritis, rheumatoid arthritis, or painful monthly periods. It can also relieve minor aches and pains caused by a cold, flu, or sore throat. How should I use this medicine? Take this medicine by mouth with a glass of water. Follow the directions on the prescription label. Take this medicine with food if your stomach gets upset. Try to not lie down for at least 10 minutes after you take the medicine. Take your medicine at regular intervals. Do not take your medicine more often than directed. A special MedGuide will be given to you by the pharmacist with each prescription and refill. Be sure to read this information carefully each time. Talk to your bulb grower regarding the use of this medicine in children. Special care may be needed. What side effects may I notice from receiving this medicine? Side effects that you should report to your doctor or health wound care technician as soon as possible: allergic reactions like skin rash, itching or hives, swelling of the face, lips, or tongue black or bloody stools, blood in the urine or in vomit breathing problems changes in vision chest pain general ill feeling or flu-like symptoms nausea or vomiting redness, blistering, peeling or loosening of the skin, including inside the mouth slurred speech or weakness on one side of the body stomach pain unexplained weight gain or swelling unusually weak or tired yellowing of eyes or skin Side effects that usually do not require medical attention (report to your doctor or health wound care technician if they continue or are bothersome): constipation or diarrhea dizziness gas or heartburn stomach upset What may interact with this medicine? Do not take this medicine with any of the following medications: cidofovir ketorolac methotrexate pemetrexed This medicine may also interact with the following medications: alcohol aspirin diuretics lithium other drugs for inflammation like prednisone warfarin What if I miss a dose? If you miss a dose, take it as soon as you can. If it is almost time for your next dose, take only that dose. Do not take double or extra doses. Where should I keep my medicine? Keep out of the reach of children. Store at room temperature between 15 and 30 degrees C (59 and 86 degrees F). Keep container tightly closed. Throw away any unused medicine after the expiration date. What should I tell my health care provider before I take this medicine? They need to know if you have any of these conditions: asthma cigarette smoker drink more than 3 alcohol containing drinks a day heart disease or circulation problems such as heart failure or leg edema (fluid retention) high blood pressure kidney disease liver disease stomach bleeding or ulcers an unusual or allergic reaction to ibuprofen, aspirin, other NSAIDS, other medicines, foods, dyes, or preservatives or trying to get breast-feeding What should I watch for while using this medicine? Tell your doctor or healthcare professional if your symptoms do not start to get better or if they get worse. This medicine does not prevent heart attack or stroke. In fact, this medicine may increase the chance of a heart attack or stroke. The chance may increase with longer use of this medicine and in people who have heart disease. If you take aspirin to prevent heart attack or stroke, talk with your doctor or health wound care technician. Do not take other medicines that contain aspirin, ibuprofen, or naproxen with this medicine. Side effects such as stomach upset, nausea, or ulcers may be more likely to occur. Many medicines available without a prescription should not be taken with this medicine. This medicine can cause ulcers and bleeding in the stomach and intestines at any time during treatment. Ulcers and bleeding can happen without warning symptoms and can cause . To reduce your risk, do not smoke cigarettes or drink alcohol while you are taking this medicine. You may get drowsy or dizzy. Do not drive, use machinery, or do anything that needs mental alertness until you know how this medicine affects you. Do not stand or sit up quickly, especially if you are an older patient. This reduces the risk of dizzy or fainting spells. This medicine can cause you to bleed more easily. Try to avoid damage to your teeth and gums when you brush or floss your teeth. Tramadol Hydrochloride Oral tablet What is this medicine? TRAMADOL (TRA ma dole) is a pain reliever. It is used to treat moderate to severe pain in adults. How should I use this medicine? Take this medicine by mouth with a full glass of water. Follow the directions on the prescription label. If the medicine upsets your stomach, take it with food or milk. Do not take more medicine than you are told to take. Talk to your bulb grower regarding the use of this medicine in children. Special care may be needed. What side effects may I notice from receiving this medicine? Side effects that you should report to your doctor or health wound care technician as soon as possible: allergic reactions like skin rash, itching or hives, swelling of the face, lips, or tongue breathing difficulties, wheezing confusion itching light headedness or fainting spells redness, blistering, peeling or loosening of the skin, including inside the mouth seizures Side effects that usually do not require medical attention (report to your doctor or health wound care technician if they continue or are bothersome): constipation dizziness drowsiness headache nausea, vomiting What may interact with this medicine? Do not take this medicine with any of the following medications: MAOIs like Carbex, Eldepryl, Marplan, Nardil, and Parnate This medicine may also interact with the following medications: alcohol or medicines that contain alcohol antihistamines benzodiazepines bupropion carbamazepine or oxcarbazepine clozapine cyclobenzaprine digoxin furazolidone linezolid medicines for depression, anxiety, or psychotic disturbances medicines for migraine headache like almotriptan, eletriptan, frovatriptan, naratriptan, rizatriptan, sumatriptan, zolmitriptan medicines for pain like pentazocine, buprenorphine, butorphanol, meperidine, nalbuphine, and propoxyphene medicines for sleep muscle relaxants naltrexone phenobarbital phenothiazines like perphenazine, thioridazine, chlorpromazine, mesoridazine, fluphenazine, prochlorperazine, promazine, and trifluoperazine procarbazine warfarin What if I miss a dose? If you miss a dose, take it as soon as you can. If it is almost time for your next dose, take only that dose. Do not take double or extra doses. Where should I keep my medicine? Keep out of the reach of children. Store at room temperature between 15 and 30 degrees C (59 and 86 degrees F). Keep container tightly closed. Throw away any unused medicine after the expiration date. What should I tell my health care provider before I take this medicine? They need to know if you have any of these conditions: brain tumor depression drug abuse or addiction head injury if you frequently drink alcohol containing drinks kidney disease or trouble passing urine liver disease lung disease, asthma, or breathing problems seizures or epilepsy suicidal thoughts, plans, or attempt; a previous suicide attempt by you or a family member an unusual or allergic reaction to tramadol, codeine, other medicines, foods, dyes, or preservatives or trying to get breast-feeding What should I watch for while using this medicine? Tell your doctor or health wound care technician if your pain does not go away, if it gets worse, or if you have new or a different type of pain. You may develop tolerance to the medicine. Tolerance means that you will need a higher dose of the medicine for pain relief. Tolerance is normal and is expected if you take this medicine for a long time. Do not suddenly stop taking your medicine because you may develop a severe reaction. Your body becomes used to the medicine. This does NOT mean you are addicted. Addiction is a behavior related to getting and using a drug for a non-medical reason. If you have pain, you have a medical reason to take pain medicine. Your doctor will tell you how much medicine to take. If your doctor wants you to stop the medicine, the dose will be slowly lowered over time to avoid any side effects. You may get drowsy or dizzy. Do not drive, use machinery, or do anything that needs mental alertness until you know how this medicine affects you. Do not stand or sit up quickly, especially if you are an older patient. This reduces the risk of dizzy or fainting spells. Alcohol can increase or decrease the effects of this medicine. Avoid alcoholic drinks. You may have constipation. Try to have a bowel movement at least every 2 to 3 days. If you do not have a bowel movement for 3 days, call your doctor or health wound care technician. Your mouth may get dry. Chewing sugarless gum or sucking hard candy, and drinking plenty of water may help. Contact your doctor if the problem does not go away or is severe. Acetaminophen Oral tablet What is this medicine? ACETAMINOPHEN (a set a KAYLA parth fen) is a pain reliever. It is used to treat mild pain and fever. How should I use this medicine? Take this medicine by mouth with a glass of water. Follow the directions on the package or prescription label. Take your medicine at regular intervals. Do not take your medicine more often than directed. Talk to your bulb grower regarding the use of this medicine in children. While this drug may be prescribed for children as young as 6 years of age for selected conditions, precautions do apply. What side effects may I notice from receiving this medicine? Side effects that you should report to your doctor or health wound care technician as soon as possible: allergic reactions like skin rash, itching or hives, swelling of the face, lips, or tongue breathing problems fever or sore throat redness, blistering, peeling or loosening of the skin, including inside the mouth trouble passing urine or change in the amount of urine unusual bleeding or bruising unusually weak or tired yellowing of the eyes or skin Side effects that usually do not require medical attention (report to your doctor or health wound care technician if they continue or are bothersome): headache nausea, stomach upset What may interact with this medicine? alcohol imatinib isoniazid other medicines with acetaminophen What if I miss a dose? If you miss a dose, take it as soon as you can. If it is almost time for your next dose, take only that dose. Do not take double or extra doses. Where should I keep my medicine? Keep out of reach of children. Store at room temperature between 20 and 25 degrees C (68 and 77 degrees F). Protect from moisture and heat. Throw away any unused medicine after the expiration date. What should I tell my health care provider before I take this medicine? They need to know if you have any of these conditions: if you frequently drink alcohol containing drinks liver disease an unusual or allergic reaction to acetaminophen, other medicines, foods, dyes or preservatives or trying to get breast-feeding What should I watch for while using this medicine? Tell your doctor or health wound care technician if the pain lasts more than 10 days (5 days for children), if it gets worse, or if there is a new or different kind of pain. Also, check with your doctor if a fever lasts for more than 3 days. Do not take other medicines that contain acetaminophen with this medicine. Always read labels carefully. If you have questions, ask your doctor or pharmacist. If you take too much acetaminophen get medical help right away. Too much acetaminophen can be very dangerous and cause liver damage. Even if you do not have symptoms, it is important to get help right away. You have been given the following additional information: Abscess, Incision And Drainage Smoking Cessation Sulfamethoxazole, Trimethoprim Oral tablet Cephalexin Monohydrate Oral tablet Ibuprofen Oral tablet Tramadol Hydrochloride Oral tablet Acetaminophen Oral tablet Do not work for two days. (Electronically signed by Abhishek Jaquez DO 11/09/2016 7:33)
--- NOTE | 2016-11-09 07:33 | ED MED RECONCILIATION SUMMARY ---
Patient: AUTUMN AGUDELO Medication Reconciliation Report [facility] VisitID: [id number] [address] [place] [address] 41y, F Registration Date/Time: 11/08/2016 Weight: 65.7 kg Height/Length: 65 in. BMI: 24.1 ALLERGIES: None The patient's Home Medications are listed below: THE FOLLOWING MEDICATIONS NEED TO BE RECONCILED: Citalopram Hydrobromide Oral daily Omeprazole Oral 20 mg, daily Propranolol HCl Oral, daily TraZODone HCl Oral 50 mg, daily The source(s) of the original Home Medication information: Not obtained. The following Medications were given to the patient in the Emergency Department: Bupivacaine-Epinephrine [Injection] Injection, administered: 11/08/2016 9:29:00 PM Bactrim DS [PO] PO 2 tab, administered: 11/08/2016 9:57:00 PM Keflex [PO] PO 500 mg, administered: 11/08/2016 9:57:00 PM Toradol [IM] IM 60 mg, administered: 11/08/2016 9:57:00 PM The following Medications were prescribed to the patient: Acetaminophen (available over the counter): take according to label instructions. -- Abhishek Jaquez DO Bactrim DS 800 mg / 160 mg: Take 1 tablet orally every 12 hours for 7 days. Dispense fourteen (14). No refills. Substitution is permissible. -- Abhishek Jaquez DO Keflex 500 mg: take 1 capsule orally every 6 hours for 7 days. No refills. Substitution is permissible. -- Abhishek Jaquez DO Ibuprofen 600mg tablets: take 1 tablet orally every 8 hours as needed for pain. Dispense thirty (30). No refills. -- Abhishek Jaquez DO Ultram 50 mg: take 1-2 orally every 8 hours as needed for pain. Dispense ten (10). No refills. Substitution is permissible. -- Abhishek Jaquez DO
--- NOTE | 2016-11-09 07:33 | ED DISCHARGE INSTRUCTIONS ---
Patient: AUTUMN AGUDELO General Instructions [facility] VisitID: [id number] [address], [place] [address] 41y, F Registration Date/Time: 11/08/2016 Single superficial abscess to the left upper extremity with incision and drainage. 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 INSTRUCTIONS Do not work for two days. Drink plenty of fluids. Do not smoke. Seek medical help to quit smoking. (You may leave the packing in place for 2 days, then remove the packing - you may see your primary care provider for packing removal). Warnings: Further evaluation is necessary. It is very important to follow up with a physician. CONTROLLED SUBSTANCE WARNINGS. GENERAL WARNINGS: Return or contact your physician immediately if your condition worsens or changes unexpectedly, if not improving as expected, or if other problems arise. Prescription Medications: Bactrim DS 800 mg / 160 mg: Take 1 tablet orally every 12 hours for 7 days. Dispense fourteen (14). No refills. Substitution is permissible. Keflex 500 mg: take 1 capsule orally every 6 hours for 7 days. No refills. Substitution is permissible. Ibuprofen 600mg tablets: take 1 tablet orally every 8 hours as needed for pain. Dispense thirty (30). No refills. Ultram 50 mg: take 1-2 orally every 8 hours as needed for pain. Dispense ten (10). No refills. Substitution is permissible. OTC Medications: Acetaminophen (available over the counter): take according to label instructions. Follow-up: Follow up with your doctor in two days. Follow-up with: Higinio Farley MD, [facility], , [address] [place] [address] Follow up in two days. Follow-up with: [facility], , , [address] [place] [address], , [place], ; [facility], , , [address], [place] [address]; [facility], [facility], , [address] [place] [address] Follow up in two days. ADDITIONAL INFORMATION Abscess [Incision & Drainage] An abscess (sometimes called a boil) occurs when bacteria get trapped under the skin and begin to grow. Pus forms inside the abscess as the body responds to the bacteria. An abscess can occur with an insect bite, ingrown hair, blocked oil gland, pimple, cyst, or puncture wound. Treatment of your abscess has required an incision to drain the pus. If the abscess pocket was large, a gauze packing may have been inserted. This will need to be removed and possibly replaced on your next visit. Antibiotics are not required in the treatment of a simple abscess, unless the infection is spreading into the skin around the wound (known as cellulitis). Healing of the wound will take about one to two weeks depending on the size of the abscess. Healthy tissue will grow from the bottom and sides of the opening until it seals over. Home Care: The wound may drain for the first two days. Cover the wound with a clean dry dressing. If the dressing becomes soaked with blood or pus, change it. If a gauze packing was placed inside the abscess cavity, you may be advised to remove it yourself. You may do this in the shower. Once the packing is removed, you should wash the area in the shower or bath 3 to 4 times a day, until the skin opening has closed. If you were prescribed antibiotics, take them as directed until they are all gone. You may use acetaminophen (Tylenol) or ibuprofen (Motrin, Advil) to control pain, unless another pain medicine was prescribed. [ NOTE: If you have liver disease or ever had a stomach ulcer, talk with your doctor before using these medicines.] Follow Up with your doctor as advised by our staff. If a gauze packing was inserted in your wound, it should be removed in 1-2 days. Check your wound every day for the signs of worsening infection listed below. Get Prompt Medical Attention if any of the following occur: Increasing redness or swelling Red streaks in the skin leading away from the wound Increasing local pain or swelling Continued pus draining from the wound two days after treatment Fever of 100.4F (38C) or higher, or as directed by your healthcare provider How To Quit Smoking Smoking is one of the hardest habits to break. About half of all those who have ever smoked have been able to quit, and most of those (about 70%) who still smoke want to quit. Here are some of the best ways to stop smoking. Keep Trying: It takes most smokers about 8 tries before they are finally able to fully quit. So, the more often you try and fail, the better your chance of quitting the next time! So, don't give up! Go Cold [place]: Most ex-smokers quit cold turkey. Trying to cut back gradually doesn't seem to work as well, perhaps because it continues the smoking habit. Also, it is possible to fool yourself by inhaling more while smoking fewer cigarettes. This results in the same amount of nicotine in your body! Get Support: Support programs can make an important difference, especially for the heavy smoker. These groups offer lectures, methods to change your behavior and peer support. Call the free national Quitline for more information. 428-VWUU-VKY (817-207-6532). Low-cost or free programs are offered by many hospitals, local chapters of the [employer] (266-249-3374) and the [employer] (485-902-3705). Support at home is important too. Non-smokers can help by offering praise and encouragement. If the smoker fails to quit, encourage them to try again! Lici-Sin-Ingagko Medicines: For those who can't quit on their own, Nicotine Replacement Therapy (NRT) may make quitting much easier. Certain aids such as the nicotine patch, gum and lozenge are available without a prescription. However, it is best to use these under the guidance of your doctor. The skin patch provides a steady supply of nicotine to the body. Nicotine gum and lozenge gives temporary bursts of low levels of nicotine. Both methods take the edge off the craving for cigarettes. WARNING: If you feel symptoms of nicotine overdose, such as nausea, vomiting, dizziness, weakness, or fast heartbeat, stop using these and see your doctor. Prescription Medicines: After evaluating your smoking patterns and prior attempts at quitting, your doctor may offer a prescription medicine such as bupropion (Zyban, Wellbutrin), varenicline (Chantix, Champix), a niocotine inhaler or nasal spray. Each has its unique advantage and side effects which your doctor can review with you. Health Benefits Of Quitting: The benefits of quitting start right away and keep improving the longer you go without smokin minutes: blood pressure and pulse return to normal 8 hours: oxygen levels return to normal 2 days: ability to smell and taste begins to improve as damaged nerves start to regrow 2-3 weeks: circulation and lung function improves 1-9 months: decreased cough, congestion and shortness of breath; less tired 1 year: risk of heart attack decreases by half 5 years: risk of lung cancer decreases by half; risk of stroke becomes the same as a non-smoker For information about how to quit smoking, visit the following links: [employer] [place] , Clearing the Air, Quit Smoking Today - an online booklet. http://www.smokefree.gov/pubs/clearing_the_air.pdf Smokefree.gov http://smokefree.gov/ QuitNet http://www.quitnet.com/ Sulfamethoxazole, Trimethoprim Oral tablet What is this medicine? SULFAMETHOXAZOLE; TRIMETHOPRIM or SMX-TMP (suhl fuh meth OK kenyatta zohl; trye METH oh prim) is a combination of a sulfonamide antibiotic and a second antibiotic, trimethoprim. It is used to treat or prevent certain kinds of bacterial infections. It will not work for colds, flu, or other viral infections. How should I use this medicine? Take this medicine by mouth with a full glass of water. Follow the directions on the prescription label. Take your medicine at regular intervals. Do not take it more often than directed. Do not skip doses or stop your medicine early. Talk to your microbiology lab technician regarding the use of this medicine in children. Special care may be needed. This medicine has been used in children as young as 2 months of age. What side effects may I notice from receiving this medicine? Side effects that you should report to your doctor or health vocational childcare teacher as soon as possible: allergic reactions like skin rash or hives, swelling of the face, lips, or tongue breathing problems fever or chills, sore throat irregular heartbeat, chest pain joint or muscle pain pain or difficulty passing urine red pinpoint spots on skin redness, blistering, peeling or loosening of the skin, including inside the mouth unusual bleeding or bruising unusually weak or tired yellowing of the eyes or skin Side effects that usually do not require medical attention (report to your doctor or health vocational childcare teacher if they continue or are bothersome): diarrhea dizziness headache loss of appetite nausea, vomiting nervousness What may interact with this medicine? Do not take this medicine with any of the following medications: aminobenzoate potassium dofetilide metronidazole This medicine may also interact with the following medications: CARLOS inhibitors like benazepril, enalapril, lisinopril, and ramipril cyclosporine digoxin diuretics indomethacin medicines for diabetes methenamine methotrexate phenytoin potassium supplements pyrimethamine sulfinpyrazone tricyclic antidepressants warfarin What if I miss a dose? If you miss a dose, take it as soon as you can. If it is almost time for your next dose, take only that dose. Do not take double or extra doses. Where should I keep my medicine? Keep out of the reach of children. Store at room temperature between 20 to 25 degrees C (68 to 77 degrees F). Protect from light. Throw away any unused medicine after the expiration date. What should I tell my health care provider before I take this medicine? They need to know if you have any of these conditions: anemia asthma being treated with anticonvulsants if you frequently drink alcohol containing drinks kidney disease liver disease low level of folic acid or [id number] dehydrogenase poor nutrition or malabsorption porphyria severe allergies thyroid disorder an unusual or allergic reaction to sulfamethoxazole, trimethoprim, sulfa drugs, other medicines, foods, dyes, or preservatives or trying to get breast-feeding What should I watch for while using this medicine? Tell your doctor or health vocational childcare teacher if your symptoms do not improve. Drink several glasses of water a day to reduce the risk of kidney problems. Do not treat diarrhea with over the counter products. Contact your doctor if you have diarrhea that lasts more than 2 days or if it is severe and watery. This medicine can make you more sensitive to the sun. Keep out of the sun. If you cannot avoid being in the sun, wear protective clothing and use a sunscreen. Do not use sun lamps or tanning beds/booths. Cephalexin Monohydrate Oral tablet What is this medicine? CEPHALEXIN (sef a YO in) is a cephalosporin antibiotic. It is used to treat certain kinds of bacterial infections It will not work for colds, flu, or other viral infections. How should I use this medicine? Take this medicine by mouth with a full glass of water. Follow the directions on the prescription label. This medicine can be taken with or without food. Take your medicine at regular intervals. Do not take your medicine more often than directed. Take all of your medicine as directed even if you think you are better. Do not skip doses or stop your medicine early. Talk to your microbiology lab technician regarding the use of this medicine in children. While this drug may be prescribed for selected conditions, precautions do apply. What side effects may I notice from receiving this medicine? Side effects that you should report to your doctor or health vocational childcare teacher as soon as possible: allergic reactions like skin rash, itching or hives, swelling of the face, lips, or tongue breathing problems pain or trouble passing urine redness, blistering, peeling or loosening of the skin, including inside the mouth severe or watery diarrhea unusually weak or tired yellowing of the eyes, skin Side effects that usually do not require medical attention (report to your doctor or health vocational childcare teacher if they continue or are bothersome): gas or heartburn genital or anal irritation headache joint or muscle pain nausea, vomiting What may interact with this medicine? probenecid some other antibiotics What if I miss a dose? If you miss a dose, take it as soon as you can. If it is almost time for your next dose, take only that dose. Do not take double or extra doses. There should be at least 4 to 6 hours between doses. Where should I keep my medicine? Keep out of the reach of children. Store at room temperature between 59 and 86 degrees F (15 and 30 degrees C). Throw away any unused medicine after the expiration date. What should I tell my health care provider before I take this medicine? They need to know if you have any of these conditions: kidney disease stomach or intestine problems, especially colitis an unusual or allergic reaction to cephalexin, other cephalosporins, penicillins, other antibiotics, medicines, foods, dyes or preservatives or trying to get breast-feeding What should I watch for while using this medicine? Tell your doctor or health vocational childcare teacher if your symptoms do not begin to improve in a few days. Do not treat diarrhea with over the counter products. Contact your doctor if you have diarrhea that lasts more than 2 days or if it is severe and watery. If you have diabetes, you may get a false-positive result for sugar in your urine. Check with your doctor or health vocational childcare teacher. Ibuprofen Oral tablet What is this medicine? IBUPROFEN (eye BYOO proe fen) is a non-steroidal anti-inflammatory drug (NSAID). It is used for dental pain, fever, headaches or migraines, osteoarthritis, rheumatoid arthritis, or painful monthly periods. It can also relieve minor aches and pains caused by a cold, flu, or sore throat. How should I use this medicine? Take this medicine by mouth with a glass of water. Follow the directions on the prescription label. Take this medicine with food if your stomach gets upset. Try to not lie down for at least 10 minutes after you take the medicine. Take your medicine at regular intervals. Do not take your medicine more often than directed. A special MedGuide will be given to you by the pharmacist with each prescription and refill. Be sure to read this information carefully each time. Talk to your microbiology lab technician regarding the use of this medicine in children. Special care may be needed. What side effects may I notice from receiving this medicine? Side effects that you should report to your doctor or health vocational childcare teacher as soon as possible: allergic reactions like skin rash, itching or hives, swelling of the face, lips, or tongue black or bloody stools, blood in the urine or in vomit breathing problems changes in vision chest pain general ill feeling or flu-like symptoms nausea or vomiting redness, blistering, peeling or loosening of the skin, including inside the mouth slurred speech or weakness on one side of the body stomach pain unexplained weight gain or swelling unusually weak or tired yellowing of eyes or skin Side effects that usually do not require medical attention (report to your doctor or health vocational childcare teacher if they continue or are bothersome): constipation or diarrhea dizziness gas or heartburn stomach upset What may interact with this medicine? Do not take this medicine with any of the following medications: cidofovir ketorolac methotrexate pemetrexed This medicine may also interact with the following medications: alcohol aspirin diuretics lithium other drugs for inflammation like prednisone warfarin What if I miss a dose? If you miss a dose, take it as soon as you can. If it is almost time for your next dose, take only that dose. Do not take double or extra doses. Where should I keep my medicine? Keep out of the reach of children. Store at room temperature between 15 and 30 degrees C (59 and 86 degrees F). Keep container tightly closed. Throw away any unused medicine after the expiration date. What should I tell my health care provider before I take this medicine? They need to know if you have any of these conditions: asthma cigarette smoker drink more than 3 alcohol containing drinks a day heart disease or circulation problems such as heart failure or leg edema (fluid retention) high blood pressure kidney disease liver disease stomach bleeding or ulcers an unusual or allergic reaction to ibuprofen, aspirin, other NSAIDS, other medicines, foods, dyes, or preservatives or trying to get breast-feeding What should I watch for while using this medicine? Tell your doctor or healthcare professional if your symptoms do not start to get better or if they get worse. This medicine does not prevent heart attack or stroke. In fact, this medicine may increase the chance of a heart attack or stroke. The chance may increase with longer use of this medicine and in people who have heart disease. If you take aspirin to prevent heart attack or stroke, talk with your doctor or health vocational childcare teacher. Do not take other medicines that contain aspirin, ibuprofen, or naproxen with this medicine. Side effects such as stomach upset, nausea, or ulcers may be more likely to occur. Many medicines available without a prescription should not be taken with this medicine. This medicine can cause ulcers and bleeding in the stomach and intestines at any time during treatment. Ulcers and bleeding can happen without warning symptoms and can cause . To reduce your risk, do not smoke cigarettes or drink alcohol while you are taking this medicine. You may get drowsy or dizzy. Do not drive, use machinery, or do anything that needs mental alertness until you know how this medicine affects you. Do not stand or sit up quickly, especially if you are an older patient. This reduces the risk of dizzy or fainting spells. This medicine can cause you to bleed more easily. Try to avoid damage to your teeth and gums when you brush or floss your teeth. Tramadol Hydrochloride Oral tablet What is this medicine? TRAMADOL (TRA ma dole) is a pain reliever. It is used to treat moderate to severe pain in adults. How should I use this medicine? Take this medicine by mouth with a full glass of water. Follow the directions on the prescription label. If the medicine upsets your stomach, take it with food or milk. Do not take more medicine than you are told to take. Talk to your microbiology lab technician regarding the use of this medicine in children. Special care may be needed. What side effects may I notice from receiving this medicine? Side effects that you should report to your doctor or health vocational childcare teacher as soon as possible: allergic reactions like skin rash, itching or hives, swelling of the face, lips, or tongue breathing difficulties, wheezing confusion itching light headedness or fainting spells redness, blistering, peeling or loosening of the skin, including inside the mouth seizures Side effects that usually do not require medical attention (report to your doctor or health vocational childcare teacher if they continue or are bothersome): constipation dizziness drowsiness headache nausea, vomiting What may interact with this medicine? Do not take this medicine with any of the following medications: MAOIs like Carbex, Eldepryl, Marplan, Nardil, and Parnate This medicine may also interact with the following medications: alcohol or medicines that contain alcohol antihistamines benzodiazepines bupropion carbamazepine or oxcarbazepine clozapine cyclobenzaprine digoxin furazolidone linezolid medicines for depression, anxiety, or psychotic disturbances medicines for migraine headache like almotriptan, eletriptan, frovatriptan, naratriptan, rizatriptan, sumatriptan, zolmitriptan medicines for pain like pentazocine, buprenorphine, butorphanol, meperidine, nalbuphine, and propoxyphene medicines for sleep muscle relaxants naltrexone phenobarbital phenothiazines like perphenazine, thioridazine, chlorpromazine, mesoridazine, fluphenazine, prochlorperazine, promazine, and trifluoperazine procarbazine warfarin What if I miss a dose? If you miss a dose, take it as soon as you can. If it is almost time for your next dose, take only that dose. Do not take double or extra doses. Where should I keep my medicine? Keep out of the reach of children. Store at room temperature between 15 and 30 degrees C (59 and 86 degrees F). Keep container tightly closed. Throw away any unused medicine after the expiration date. What should I tell my health care provider before I take this medicine? They need to know if you have any of these conditions: brain tumor depression drug abuse or addiction head injury if you frequently drink alcohol containing drinks kidney disease or trouble passing urine liver disease lung disease, asthma, or breathing problems seizures or epilepsy suicidal thoughts, plans, or attempt; a previous suicide attempt by you or a family member an unusual or allergic reaction to tramadol, codeine, other medicines, foods, dyes, or preservatives or trying to get breast-feeding What should I watch for while using this medicine? Tell your doctor or health vocational childcare teacher if your pain does not go away, if it gets worse, or if you have new or a different type of pain. You may develop tolerance to the medicine. Tolerance means that you will need a higher dose of the medicine for pain relief. Tolerance is normal and is expected if you take this medicine for a long time. Do not suddenly stop taking your medicine because you may develop a severe reaction. Your body becomes used to the medicine. This does NOT mean you are addicted. Addiction is a behavior related to getting and using a drug for a non-medical reason. If you have pain, you have a medical reason to take pain medicine. Your doctor will tell you how much medicine to take. If your doctor wants you to stop the medicine, the dose will be slowly lowered over time to avoid any side effects. You may get drowsy or dizzy. Do not drive, use machinery, or do anything that needs mental alertness until you know how this medicine affects you. Do not stand or sit up quickly, especially if you are an older patient. This reduces the risk of dizzy or fainting spells. Alcohol can increase or decrease the effects of this medicine. Avoid alcoholic drinks. You may have constipation. Try to have a bowel movement at least every 2 to 3 days. If you do not have a bowel movement for 3 days, call your doctor or health vocational childcare teacher. Your mouth may get dry. Chewing sugarless gum or sucking hard candy, and drinking plenty of water may help. Contact your doctor if the problem does not go away or is severe. Acetaminophen Oral tablet What is this medicine? ACETAMINOPHEN (a set a KAYLA parth fen) is a pain reliever. It is used to treat mild pain and fever. How should I use this medicine? Take this medicine by mouth with a glass of water. Follow the directions on the package or prescription label. Take your medicine at regular intervals. Do not take your medicine more often than directed. Talk to your microbiology lab technician regarding the use of this medicine in children. While this drug may be prescribed for children as young as 6 years of age for selected conditions, precautions do apply. What side effects may I notice from receiving this medicine? Side effects that you should report to your doctor or health vocational childcare teacher as soon as possible: allergic reactions like skin rash, itching or hives, swelling of the face, lips, or tongue breathing problems fever or sore throat redness, blistering, peeling or loosening of the skin, including inside the mouth trouble passing urine or change in the amount of urine unusual bleeding or bruising unusually weak or tired yellowing of the eyes or skin Side effects that usually do not require medical attention (report to your doctor or health vocational childcare teacher if they continue or are bothersome): headache nausea, stomach upset What may interact with this medicine? alcohol imatinib isoniazid other medicines with acetaminophen What if I miss a dose? If you miss a dose, take it as soon as you can. If it is almost time for your next dose, take only that dose. Do not take double or extra doses. Where should I keep my medicine? Keep out of reach of children. Store at room temperature between 20 and 25 degrees C (68 and 77 degrees F). Protect from moisture and heat. Throw away any unused medicine after the expiration date. What should I tell my health care provider before I take this medicine? They need to know if you have any of these conditions: if you frequently drink alcohol containing drinks liver disease an unusual or allergic reaction to acetaminophen, other medicines, foods, dyes or preservatives or trying to get breast-feeding What should I watch for while using this medicine? Tell your doctor or health vocational childcare teacher if the pain lasts more than 10 days (5 days for children), if it gets worse, or if there is a new or different kind of pain. Also, check with your doctor if a fever lasts for more than 3 days. Do not take other medicines that contain acetaminophen with this medicine. Always read labels carefully. If you have questions, ask your doctor or pharmacist. If you take too much acetaminophen get medical help right away. Too much acetaminophen can be very dangerous and cause liver damage. Even if you do not have symptoms, it is important to get help right away. You have been given the following additional information: Abscess, Incision And Drainage Smoking Cessation Sulfamethoxazole, Trimethoprim Oral tablet Cephalexin Monohydrate Oral tablet Ibuprofen Oral tablet Tramadol Hydrochloride Oral tablet Acetaminophen Oral tablet Do not work for two days. (Electronically signed by Abhishek Jaquez DO 11/09/2016 7:33)
--- NOTE | 2016-11-09 07:33 | ED MAR SUMMARY ---
..... Medication Administration Record [facility] [address] [place] [address] Patient: AUTUMN AGUDELO Visit ID: [id number] 41y, F Weight: 65.7 kg Height/Length: 65 in BMI: 24.1 ALLERGIES: None Given 21:11/08/2016 Albina Ramirez R.N. Medication Administered: BUPIVACAINE-EPINEPHRINE [INJECTION] (BUPIVACAINE-EPINEPHRINE), Dose: Injectable Injection. Medication Ordered: Bupivacaine-Epinephrine Injection 0.5 % (soln) (NOW). Given :11/08/2016 Ros Sandhu R.N. Medication Administered: BACTRIM DS [PO] (SULFAMETHOXAZOLE-TMP DS), Dose: 2 tab Tablets PO. Medication Ordered: Bactrim DS PO (Tablet 800-160 mg) 2 tabs (NOW). Given :11/08/2016 Ros Sandhu R.N. Medication Administered: KEFLEX [PO] (CEPHALEXIN), Dose: 500 mg Tablets PO. Medication Ordered: Keflex PO 500 mg (NOW). Given :11/08/2016 Ros Sandhu R.N. Medication Administered: TORADOL [IM] (KETOROLAC TROMETHAMINE), Dose: 60 mg IM. Medication Ordered: Toradol IM 60 mg (NOW).
--- NOTE | 2016-11-09 07:33 | ED MAR SUMMARY ---
..... Medication Administration Record [facility] [address] [place] [address] Patient: AUTUMN AGUDELO Visit ID: [id number] 41y, F Weight: 65.7 kg Height/Length: 65 in BMI: 24.1 ALLERGIES: None Given 21:11/08/2016 Albina Ramirez R.N. Medication Administered: BUPIVACAINE-EPINEPHRINE [INJECTION] (BUPIVACAINE-EPINEPHRINE), Dose: Injectable Injection. Medication Ordered: Bupivacaine-Epinephrine Injection 0.5 % (soln) (NOW). Given :11/08/2016 Ros Sandhu R.N. Medication Administered: BACTRIM DS [PO] (SULFAMETHOXAZOLE-TMP DS), Dose: 2 tab Tablets PO. Medication Ordered: Bactrim DS PO (Tablet 800-160 mg) 2 tabs (NOW). Given :11/08/2016 Ros Sandhu R.N. Medication Administered: KEFLEX [PO] (CEPHALEXIN), Dose: 500 mg Tablets PO. Medication Ordered: Keflex PO 500 mg (NOW). Given :11/08/2016 Ros Sandhu R.N. Medication Administered: TORADOL [IM] (KETOROLAC TROMETHAMINE), Dose: 60 mg IM. Medication Ordered: Toradol IM 60 mg (NOW).
== END 2016-11-08 22:10 | disposition home or self-care (01) ==
LOC: ED SRH 21:05
DX: L02.414 Cutaneous abscess of left upper limb (principal); F17.210 Nicotine dependence, cigarettes, uncomplicated; F12.10 Cannabis abuse, uncomplicated; F11.10 Opioid abuse, uncomplicated; F19.94 Other psychoactive substance use, unspecified with psychoactive substance-induced mood disorder; F41.9 Anxiety disorder, unspecified; K21.9 Gastro-esophageal reflux disease without esophagitis
CPT/HCPCS: 90070; 90131; 90309; 91672

== ENCOUNTER 2016-11-29 02:25 | Emergency (ER) | payer OTHER ==
--- NOTE | 2016-11-29 22:11 | ED CLINICAL REPORT ---
Clinical Report - Physicians/Mid Levels [facility] [address] [place] [address] 11/29/2016 2:28 Patient: AUTUMN AGUDELO Time Seen: 0231. Arrived- By ambulance. Historian- patient. Referred (EMS). HISTORY OF PRESENT ILLNESS Chief Complaint: DEPRESSED and SUICIDAL THOUGHTS. This started today. No unusual behavior. She has had mild auditory hallucinations (does not know what the voices are saying). The symptoms are described as moderate. No injury is present. Additional history - was at [employer] and reported suicidal ideation. 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 Similar symptoms previously: None. Recent medical care: Not recently seen/assessed. REVIEW OF SYSTEMS No skin rash. She has had back pain and depression and complains of pain on weight bearing. Legs feel restless. Restless legs Some pain in legs. PAST HISTORY ( PROBLEMS: Sciatica. Abscess. Lifestyle / Substance Problems. Cellulitis. Reflux. Migraine Headache. ADDITIONAL SURGERIES: Carpal Tunnel Surgery. Hysterectomy. Shoulder Surgery. Sinus Surgery. Tubal Ligation). Medications: Citalopram Hydrobromide Oral daily. Omeprazole Oral 20 mg, daily. Propranolol HCl Oral, daily. TraZODone HCl Oral 50 mg, daily. Allergies: None. SOCIAL HISTORY Smoker- current status unknown. History of drug use. No alcohol use. Has social support. Has place to stay. FAMILY HISTORY Negative. No history of suicide attempts. ADDITIONAL NOTES The nursing notes have been reviewed. PHYSICAL EXAM Vital Signs: 11/29/2016 02:29 BP: 111/69. HR: 63. RR: 16. O2 saturation: 98%. Temp: 97.7 F. Pain level now: 10/10. Blood pressure normal. Oxygen saturation normal. Appearance: Alert. No acute distress. Appearance is normal. Patient is uncooperative. Eyes: Pupils equal, round and reactive to light. Neck: Normal inspection. Neck supple. CVS: Normal heart rate and rhythm. Heart sounds normal. Respiratory: Breath sounds normal. Chest nontender. Abdomen: Soft and nontender. Skin: Skin warm and dry. Normal skin color. Normal skin turgor. Extremities: Extremities exhibit normal ROM. No lower extremity edema. Psych / Neuro: Oriented X 3. Mood and affect normal. Speech normal. Cognition normal. Thought process and content normal. Insight and judgement normal. Cranial nerves normal (as tested). No motor deficit. No sensory deficit. LABS, X-RAYS, AND EKG Laboratory Tests: UA-Culture if indicated: (ROWAN: 11/29/2016 05:00) ( [facility] 11/29/2016 05:28) Final results Test Result Flag Units (Reference) URINE COLOR YELLOW URINE APPEARANCE CLEAR URINE GLUCOSE NEGATIVE (NEGATIVE) URINE BILIRUBIN 1+ (NEGATIVE) URINE KETONE 1+ (NEGATIVE) URINE SPECIFIC GRAVITY >= 1.030 (1.010-1.030) URINE PH 6.0 (5.0-8.0) URINE PROTEIN NEGATIVE (NEGATIVE) URINE UROBILINOGEN 1.0 EU/dL (0.2-1.0) URINE NITRITE NEGATIVE (NEGATIVE) URINE BLOOD NEGATIVE (NEGATIVE) URINE LEUK ESTERASE NEGATIVE (NEGATIVE) URINE RBC 0-1 rbc/hpf (0-1) URINE WBC 0-1 wbc/hpf (0-1) URINE EPITHELIAL CELLS 0-1 EPI/hpf (0-5) URINE BACTERIA NONE SEEN (NONE SEEN) URINE COMMENT CULT NOT INDICATED URINE CULTURES ARE SET-UP BASED ON THE FOLLOWING CRITERIA:POSITIVE NITRITEPOSITIVE LEUKOCYTE ESTERASEGREATER THAN 10 WHITE BLOOD CELLSMODERATE (2+) OR GREATER BACTERIA Urine: (ROWAN: 11/29/2016 05:00) ( [facility] 11/29/2016 05:28) Final results Test Result Flag Units (Reference) URINE NEGATIVE CBC w Diff: (ROWAN: 11/29/2016 02:47) ( [facility] 11/29/2016 02:58) Final results Test Result Flag Units (Reference) WHITE BLOOD COUNT 7.9 K/uL (4.5-11.5) RED BLOOD COUNT 4.12 M/uL (4.00-5.20) HEMOGLOBIN 12.7 gm/dL (12.0-16.0) HEMATOCRIT 38.2 % (36.0-46.0) MEAN CELL VOLUME 93 fL (80-100) MEAN CORPUSCULAR HGB 31 pg (26-34) MEAN CORPUSCULAR HGB CONC 33 g/dL (31-37) RED CELL DISTRIBUTION WIDTH 13.7 % (11.6-14.8) PLATELET COUNT 449 H K/uL (150-400) NEUTROPHIL % 53.2 % (50-75) LYMPH % 38.9 % (25-40) MONO % 6.3 % (3-14) EOSINOPHIL % 0.9 % (0-4) BASOPHIL % 0.7 % (0-2) PT with INR: (ROWAN: 11/29/2016 02:47) ( [facility] 11/29/2016 03:02) Final results Test Result Flag Units (Reference) INR 1.0 (0.8-1.2) Low Intensity Therapy: INR 1.5-2.0 PT range 18.5-23.1Mod.Intensity Therapy: INR 2.0-3.0 PT range 23.1-31.5High Intensity Therapy: INR 2.5-3.5 PT range 27.4-35.5High Intensity Therapy 2: INR 3.0-4.0 PT range 31.5-39.3 Urine Drug Screen: (ROWAN: 11/29/2016 05:00) ( [facility] 11/29/2016 05:57) Final results Test Result Flag Units (Reference) AMPHETAMINE/METHAMPHETAMINE POSITIVE H (NEGATIVE) BARBITURATE NEGATIVE (NEGATIVE) BENZODIAZEPINE NEGATIVE (NEGATIVE) CANNABINOID NEGATIVE (NEGATIVE) COCAINE NEGATIVE (NEGATIVE) ECSTASY NEGATIVE (NEGATIVE) METHADONE NEGATIVE (NEGATIVE) OPIATE POSITIVE H (NEGATIVE) The urine drug screen is a qualitative screening test fordrug overdose and abuse. All screen results should beconsidered as presumptive.Drugs screened for are as follows:BenzodiazepinesCocaineAmphetamines/MetamphetaminesTHC (Tetrahydrocannabinol)OpiatesBarbituratesEcstasyMethadonePositive results are unconfirmed. For confirmation, notifythe lab for the specimen to be sent to the reference lab.All confirmations must be performed by a differentmethodology.The ingestion of natural herbal and plant productscontaining Ephedra/Ephedra metabolites can produce in urineone or more substances capable of cross reacting withamphetamine/methamphetamine immunoassays. These testsprovide a preliminary result only. A more specificalternative chemical method must be used to obtain aconfirmed analytical result. Salicylate Level: (ROWAN: 11/29/2016 02:47) ( [facility] 11/29/2016 03:04) Final results Test Result Flag Units (Reference) SALICYLATE <2.8 L mg/dL (2.8-20) CMP: (ROWAN: 11/29/2016 02:47) ( [facility] 11/29/2016 03:09) Final results Test Result Flag Units (Reference) GLUCOSE 91 mg/dL (70-110) BUN 9 mg/dL (7-18) CREATININE 0.7 mg/dL (0.6-1.3) Estimated GFR >60 mL/min Estimated GFR- >60 mL/min Note: Persistent reduction over 3 months in eGFR<60 mL/min/1.73 m2 defines CKD. Patients with eGFR values>=60 mL/min/1.73 m2 may also have CKD if evidence ofpersistent proteinuria. Additional information may be foundat www.kidney.org. SODIUM 140 mmol/L (136-145) POTASSIUM 3.4 L mmol/L (3.5-5.1) CHLORIDE 103 mmol/L (98-107) CARBON DIOXIDE 28 mmol/L (21-32) CALCIUM 8.8 mg/dL (8.5-10.1) TOTAL PROTEIN 7.4 g/dL (6.4-8.2) ALBUMIN 3.7 g/dL (3.3-5.0) BILIRUBIN, TOTAL 0.8 mg/dL (0.0-1.0) ALKALINE PHOSPHATASE 70 U/L (46-116) AST (SGOT) 29 U/L (15-37) ALT (SGPT) 43 U/L (12-78) ACETAMINOPHEN < 3 L ug/mL (10-30) ETHYL ALCOHOL <3 L mg/dL (3-10) . PROGRESS AND PROCEDURES Course of Care: the patient is a 41-year-old female with past medical history significant for substance abuse presentingion. Patient has no specific plan however states that she isn't suicidal. Patient with mild auditory hallucinations. patient is currently medically cleared. Patient is awaiting evaluation by the crisis team. Patient will be evaluated as soon as possible one of the crisis counselors is available. Patient will be signed out to the oncoming physician. Plan is to follow-up with patient's disposition and crisis counselor for Evaluation. Assumed care at [address] German due to change of shift. /R MD Zev Clonidine patch. Fluid movement when ambulating. 22:00 11/29/16. The [facility] team found a crisis bed. Daniel, Accepting RN at [facility] Respite bed. Pt feels much better after a clonidine patch. Disposition: Discharged (to crisis bed.). CLINICAL IMPRESSION Depression. POLY SUBSTANCE ABUSE. INSTRUCTIONS (WE HAVE FOUND A CRISIS BED. CONSIDER [facility] FOR SUBSTANCE TREATMENT.). Follow-up: Follow up with doctor. Understanding of the discharge instructions verbalized by patient. Follow-up with: [facility], , , [address], , [place], [address] Follow up. Reason for referral: [facility]. (Electronically signed by Ralph Brothers MD 12/01/2016 20:49)
--- NOTE | 2016-11-29 22:11 | ED CLINICAL REPORT ---
Clinical Report - Physicians/Mid Levels [facility] [address] [place] [address] 11/29/2016 2:28 Patient: AUTUMN AGUDELO Time Seen: 0231. Arrived- By ambulance. Historian- patient. Referred (EMS). HISTORY OF PRESENT ILLNESS Chief Complaint: DEPRESSED and SUICIDAL THOUGHTS. This started today. No unusual behavior. She has had mild auditory hallucinations (does not know what the voices are saying). The symptoms are described as moderate. No injury is present. Additional history - was at [employer] and reported suicidal ideation. 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 Similar symptoms previously: None. Recent medical care: Not recently seen/assessed. REVIEW OF SYSTEMS No skin rash. She has had back pain and depression and complains of pain on weight bearing. Legs feel restless. Restless legs Some pain in legs. PAST HISTORY ( PROBLEMS: Sciatica. Abscess. Lifestyle / Substance Problems. Cellulitis. Reflux. Migraine Headache. ADDITIONAL SURGERIES: Carpal Tunnel Surgery. Hysterectomy. Shoulder Surgery. Sinus Surgery. Tubal Ligation). Medications: Citalopram Hydrobromide Oral daily. Omeprazole Oral 20 mg, daily. Propranolol HCl Oral, daily. TraZODone HCl Oral 50 mg, daily. Allergies: None. SOCIAL HISTORY Smoker- current status unknown. History of drug use. No alcohol use. Has social support. Has place to stay. FAMILY HISTORY Negative. No history of suicide attempts. ADDITIONAL NOTES The nursing notes have been reviewed. PHYSICAL EXAM Vital Signs: 11/29/2016 02:29 BP: 111/69. HR: 63. RR: 16. O2 saturation: 98%. Temp: 97.7 F. Pain level now: 10/10. Blood pressure normal. Oxygen saturation normal. Appearance: Alert. No acute distress. Appearance is normal. Patient is uncooperative. Eyes: Pupils equal, round and reactive to light. Neck: Normal inspection. Neck supple. CVS: Normal heart rate and rhythm. Heart sounds normal. Respiratory: Breath sounds normal. Chest nontender. Abdomen: Soft and nontender. Skin: Skin warm and dry. Normal skin color. Normal skin turgor. Extremities: Extremities exhibit normal ROM. No lower extremity edema. Psych / Neuro: Oriented X 3. Mood and affect normal. Speech normal. Cognition normal. Thought process and content normal. Insight and judgement normal. Cranial nerves normal (as tested). No motor deficit. No sensory deficit. LABS, X-RAYS, AND EKG Laboratory Tests: UA-Culture if indicated: (ROWAN: 11/29/2016 05:00) ( [facility] 11/29/2016 05:28) Final results Test Result Flag Units (Reference) URINE COLOR YELLOW URINE APPEARANCE CLEAR URINE GLUCOSE NEGATIVE (NEGATIVE) URINE BILIRUBIN 1+ (NEGATIVE) URINE KETONE 1+ (NEGATIVE) URINE SPECIFIC GRAVITY >= 1.030 (1.010-1.030) URINE PH 6.0 (5.0-8.0) URINE PROTEIN NEGATIVE (NEGATIVE) URINE UROBILINOGEN 1.0 EU/dL (0.2-1.0) URINE NITRITE NEGATIVE (NEGATIVE) URINE BLOOD NEGATIVE (NEGATIVE) URINE LEUK ESTERASE NEGATIVE (NEGATIVE) URINE RBC 0-1 rbc/hpf (0-1) URINE WBC 0-1 wbc/hpf (0-1) URINE EPITHELIAL CELLS 0-1 EPI/hpf (0-5) URINE BACTERIA NONE SEEN (NONE SEEN) URINE COMMENT CULT NOT INDICATED URINE CULTURES ARE SET-UP BASED ON THE FOLLOWING CRITERIA:POSITIVE NITRITEPOSITIVE LEUKOCYTE ESTERASEGREATER THAN 10 WHITE BLOOD CELLSMODERATE (2+) OR GREATER BACTERIA Urine: (ROWAN: 11/29/2016 05:00) ( [facility] 11/29/2016 05:28) Final results Test Result Flag Units (Reference) URINE NEGATIVE CBC w Diff: (ROWAN: 11/29/2016 02:47) ( [facility] 11/29/2016 02:58) Final results Test Result Flag Units (Reference) WHITE BLOOD COUNT 7.9 K/uL (4.5-11.5) RED BLOOD COUNT 4.12 M/uL (4.00-5.20) HEMOGLOBIN 12.7 gm/dL (12.0-16.0) HEMATOCRIT 38.2 % (36.0-46.0) MEAN CELL VOLUME 93 fL (80-100) MEAN CORPUSCULAR HGB 31 pg (26-34) MEAN CORPUSCULAR HGB CONC 33 g/dL (31-37) RED CELL DISTRIBUTION WIDTH 13.7 % (11.6-14.8) PLATELET COUNT 449 H K/uL (150-400) NEUTROPHIL % 53.2 % (50-75) LYMPH % 38.9 % (25-40) MONO % 6.3 % (3-14) EOSINOPHIL % 0.9 % (0-4) BASOPHIL % 0.7 % (0-2) PT with INR: (ROWAN: 11/29/2016 02:47) ( [facility] 11/29/2016 03:02) Final results Test Result Flag Units (Reference) INR 1.0 (0.8-1.2) Low Intensity Therapy: INR 1.5-2.0 PT range 18.5-23.1Mod.Intensity Therapy: INR 2.0-3.0 PT range 23.1-31.5High Intensity Therapy: INR 2.5-3.5 PT range 27.4-35.5High Intensity Therapy 2: INR 3.0-4.0 PT range 31.5-39.3 Urine Drug Screen: (ROWAN: 11/29/2016 05:00) ( [facility] 11/29/2016 05:57) Final results Test Result Flag Units (Reference) AMPHETAMINE/METHAMPHETAMINE POSITIVE H (NEGATIVE) BARBITURATE NEGATIVE (NEGATIVE) BENZODIAZEPINE NEGATIVE (NEGATIVE) CANNABINOID NEGATIVE (NEGATIVE) COCAINE NEGATIVE (NEGATIVE) ECSTASY NEGATIVE (NEGATIVE) METHADONE NEGATIVE (NEGATIVE) OPIATE POSITIVE H (NEGATIVE) The urine drug screen is a qualitative screening test fordrug overdose and abuse. All screen results should beconsidered as presumptive.Drugs screened for are as follows:BenzodiazepinesCocaineAmphetamines/MetamphetaminesTHC (Tetrahydrocannabinol)OpiatesBarbituratesEcstasyMethadonePositive results are unconfirmed. For confirmation, notifythe lab for the specimen to be sent to the reference lab.All confirmations must be performed by a differentmethodology.The ingestion of natural herbal and plant productscontaining Ephedra/Ephedra metabolites can produce in urineone or more substances capable of cross reacting withamphetamine/methamphetamine immunoassays. These testsprovide a preliminary result only. A more specificalternative chemical method must be used to obtain aconfirmed analytical result. Salicylate Level: (ROWAN: 11/29/2016 02:47) ( [facility] 11/29/2016 03:04) Final results Test Result Flag Units (Reference) SALICYLATE <2.8 L mg/dL (2.8-20) CMP: (ROWAN: 11/29/2016 02:47) ( [facility]cv[facility] 11/29/2016 03:09) Final results Test Result Flag Units (Reference) GLUCOSE 91 mg/dL (70-110) BUN 9 mg/dL (7-18) CREATININE 0.7 mg/dL (0.6-1.3) Estimated GFR >60 mL/min Estimated GFR- >60 mL/min Note: Persistent reduction over 3 months in eGFR<60 mL/min/1.73 m2 defines CKD. Patients with eGFR values>=60 mL/min/1.73 m2 may also have CKD if evidence ofpersistent proteinuria. Additional information may be foundat www.kidney.org. SODIUM 140 mmol/L (136-145) POTASSIUM 3.4 L mmol/L (3.5-5.1) CHLORIDE 103 mmol/L (98-107) CARBON DIOXIDE 28 mmol/L (21-32) CALCIUM 8.8 mg/dL (8.5-10.1) TOTAL PROTEIN 7.4 g/dL (6.4-8.2) ALBUMIN 3.7 g/dL (3.3-5.0) BILIRUBIN, TOTAL 0.8 mg/dL (0.0-1.0) ALKALINE PHOSPHATASE 70 U/L (46-116) AST (SGOT) 29 U/L (15-37) ALT (SGPT) 43 U/L (12-78) ACETAMINOPHEN < 3 L ug/mL (10-30) ETHYL ALCOHOL <3 L mg/dL (3-10) . PROGRESS AND PROCEDURES Course of Care: the patient is a 41-year-old female with past medical history significant for substance abuse presentingion. Patient has no specific plan however states that she isn't suicidal. Patient with mild auditory hallucinations. patient is currently medically cleared. Patient is awaiting evaluation by the crisis team. Patient will be evaluated as soon as possible one of the crisis counselors is available. Patient will be signed out to the oncoming physician. Plan is to follow-up with patient's disposition and crisis counselor for Evaluation. Assumed care at [address] German due to change of shift. /R MD Zev Clonidine patch. Fluid movement when ambulating. 22:00 11/29/16. The [place] team found a crisis bed. Daniel, Accepting RN at [facility] Respite bed. Pt feels much better after a clonidine patch. Disposition: Discharged (to crisis bed.). CLINICAL IMPRESSION Depression. POLY SUBSTANCE ABUSE. INSTRUCTIONS (WE HAVE FOUND A CRISIS BED. CONSIDER [facility] FOR SUBSTANCE TREATMENT.). Follow-up: Follow up with doctor. Understanding of the discharge instructions verbalized by patient. Follow-up with: [facility], , , [address], , [place], [address] Follow up. Reason for referral: [facility]. (Electronically signed by Ralph Brothers MD 12/01/2016 20:49)
--- NOTE | 2016-11-29 22:12 | ED ORDER SUMMARY ---
..... Patient: AUTUMN AGUDELO OrderSheet [facility] VisitID: [id number] [place] [address] 41y, F Registration Date/Time: 11/29/2016 ORDER SHEET Weight: 63.5 kg Allergies: None GENERAL ORDERS: CBC w Diff Urgent (02:38 11/29/2016 Oneil Santos) (Ack 2:39 [facility] Billing Specialist) (3:32 JQuivey R.N.) CMP Urgent (02:38 11/29/2016 Oneil Santos) (Ack 2:39 CH[facility] Billing Specialist) (3:32 JQuivey R.N.) UA-Culture if indicated Urgent (02:11/29/2016 Oneil Santos) (Ack 2:39 [facility] Billing Specialist) (5:06 JSanders R.N.) PT with INR Urgent (02:38 11/29/2016 Oneil Santos) (Ack 2:39 [facility] Billing Specialist) (3:32 JQuivey R.N.) Urine Urgent (02:38 11/29/2016 Oneil Santos) (Ack 2:39 CH[facility] Billing Specialist) (5:06 JSanders R.N.) Urine Drug Screen Urgent (02:38 11/29/2016 Oneil Santos) (Ack 2:39 CH[facility] Billing Specialist) (5:06 JSanders R.N.) Acetaminophen Level Urgent (02:38 11/29/2016 Oneil Santos) (Ack 2:39 CH[facility] Billing Specialist) (3:32 JQuivey R.N.) Salicylate Level Urgent (02:38 11/29/2016 Oneil Santos) (Ack 2:39 CHagerty [facility] Billing Specialist) (3:32 JQuivey R.N.) Ethyl Alcohol Urgent (02:38 11/29/2016 Oneil Santos) (Ack 2:39 CHagerty [facility] Billing Specialist) (3:32 JQuivey R.N.) MEDICATION ORDERS: Ibuprofen PO 600 mg (NOW) (18:11 11/29/2016 DDean R.N. per protocol) (18:14 DDean R.NHipolito) Tylenol PO 650 mg (NOW) (20:04 11/29/2016 [place]) (20:12 Michael Martinez.) Clonidine Topical 0.1 mg (NOW) (20:40 11/29/2016 [place]) (20:46 Michael Choudhary.Nasreen.) IV FLUIDS: ORDER SHEET NOTES: [Electronically signed by Boston Moyer R.N. (23:16 11/29/2016)] [Electronically signed by Ralph Brothers MD (20:49 12/01/2016)] [Electronically locked/signed by Boston Moyer R.N. (23:16 11/29/2016)]
--- NOTE | 2016-11-29 22:12 | ED NURSING NOTES ---
Clinical Report - Nurses [facility] [place] [address] 11/29/2016 2:28 Patient: AUTUMN AGUDELO TRIAGE Triage time 02:29. Acuity: LEVEL 3. Chief Complaint: SUICIDAL THOUGHTS and (Shoulder pain). 02:42. Alert. SEPSIS SCREEN: Sepsis Screen. Negative (no infection suspected/documented). ARIN COMA SCORE: Airn Coma Scale: 15- eyes open spontaneously (4); best verbal response- oriented x 4 (5); best motor response- obeys commands (6). --02:42 Moreno Willams R.N. 02:29 11/29/16. BP: 111/69. HR: 63. RR: 16. O2 saturation: 98% on room air. Temp: 97.7 F (oral). Pain level now: 04/14. --02:42 Moreno Willams R.N. Weight: 63.5 kg. --02:39 Moreno Willams R.N.. Height/Length: 65 inches Per Patient. BMI: 23.3. --02:39 Moreno Willams R.N. Medications Citalopram Hydrobromide Oral daily. Omeprazole Oral 20 mg, daily. Propranolol HCl Oral, daily. TraZODone HCl Oral 50 mg, daily. --02:36 Moreno Willams R.N. Medication/allergy information source: the patient. --02:42 Moreno Willams R.N. Allergies None. --02:36 Moreno Willams R.N. History Arrived by EMS. Historian: EMS and patient. Unaccompanied. Primary physician ([facility]). Onset. (1 hours ago). ( Patient reports that she isn't feeling herself, that she is coming off of meth. and heroin). Treatment TELEPHONE CLERK TELEGRAPH OFFICE: EMS treatment TELEPHONE CLERK TELEGRAPH OFFICE verbally communicated. ( EMS reports they were called by Zay LU, that pt states she wants to her herself). PAST MEDICAL HX: Immunizations: up-to-date. The patient has had a hysterectomy. SOCIAL HX: Current every day heavy tobacco smoker- less than 1 pack per day. Occasional alcohol use. History of heavy drug use: heroin, methamphetamines. Recently used drugs today. ABUSE ASSESSMENT: No report of abuse. SELF HARM ASSESSMENT: A self harm assessment was performed. The patient answered "no" to the question "Have you recently felt down, depressed, or hopeless?", "Have you noticed less interest or pleasure in doing things?", "Are you here because you tried to hurt yourself?", "Have you ever tried to hurt yourself before today?", "Have you recently had thoughts about harming or killing others?" and "Do you have any dangerous items in your possession?" and "yes" to the question "Do you have thoughts of harming or killing yourself?". FALL RISK ASSESSMENT: Fall risk assessment completed. No fall risk identified. NUTRITIONAL RISK ASSESSMENT: The nutritional risk assessment revealed no deficiencies. FUNCTIONAL ASSESSMENT: Functional assessment: no impairments noted. LEARNING NEEDS ASSESSMENT: The learning needs assessment revealed no barriers. SKIN INTEGRITY ASSESSMENT: Skin integrity risk assessment completed. No skin integrity risk identified. --02:42 Moreno Willams R.N. PROBLEMS: Sciatica. Abscess. Lifestyle / Substance Problems. Cellulitis. Reflux. Migraine Headache. --02:36 Moreno Willams R.N. ADDITIONAL SURGERIES: Carpal Tunnel Surgery. Hysterectomy. Shoulder Surgery. Sinus Surgery. Tubal Ligation. --02:36 Moreno Willams R.N. Interventions ID band on patient. To treatment room. --02:42 Moreno Willams R.N. PHYSICAL ASSESSMENT 02:35. To room via stretcher. Patient gowned. GENERAL / NEURO / PSYCH: Alert. Oriented X 4. She is somnolent. Speech within normal limits. Patient appears calm and cooperative. Patient appears well-nourished and neat and clean. RESPIRATORY: Respirations not labored. SKIN: Skin intact. Skin is warm and dry. Skin color is within normal limits. --02:46 Moreno Willams R.N. ( Patient watching television, alert oriented and conversant. Patient states that she is having "restless legs." PAT team has been in to see the patient, and). GENERAL / NEURO / PSYCH: Alert. Oriented X 4. Speech within normal limits. Affect appears normal. Patient appears calm and cooperative. Good eye contact. RESPIRATORY: Respirations not labored. CVS: Capillary refill less than 2 seconds. SKIN: Skin intact. Skin is warm and dry. Skin color is within normal limits. --19:32 Boston Moyer R.N. GENERAL / NEURO / PSYCH: Alert. Oriented X 4. Affect appears normal. --20:12 Boston Moyer R.N. ( Patient resting in bed. Appears to be sleeping.). --21:32 Bsoton Moyer R.N. ( Pt appears calm). --21:32 Boston Moyer R.N. NURSING PROGRESS NOTES 02:37 Clothing removed placed in belonging bags. Patient gowned. Head of bed elevated. Patient identifiers checked. Call light placed in reach. Bed placed in lowest position. Brakes of bed on. Patient ready for evaluation- chart flagged. --02:43 Moreno Willams R.N. 02:39 pt un-willing to cooperate in using breathalyzer. --02:44 Moreno Willams R.N. 02:48. Patient ID band checked for patient name and birthdate: patient confirmed. Blood samples drawn from the right antecubital space with 22g butterfly by nurse ; labeled in presence of the patient and sent to lab: rainbow set. (by Cassandra De Luna RN). --02:50 Moreno Willams R.N. ( Blood drawn via veinapuncture and sent to lab. performed by Cassandra Hwang nursing information systems coordinator, with Kim Moyer RN assisting and supervising.). --02:51 Boston Moyer R.N. ( Blood drawn from right AC.). --02:52 Boston Moyer R.N. 03:05 BSC placed in room - patient reminded of need for urine sample. --03:10 Moreno Willams R.N. 03:52 Assisted pt drink more water - reminded ot need for urine sample. --03:53 Moreno Willams R.N. 04:17 Patient reports that she attempted to use BSC, was unable to void. --04:27 Moreno Willams R.N. 04:48 11/29/16. ( Patient given a bed tate to use for urine sample, she refused a catheter and refused to use the commode, she was given a wet wipe to cleanse before providing sample, patient provided privacy.). --04:48 Blossom Rowan R.N. 05:05 11/29/16. 8 fr in/out catheterization. During procedure hand hygiene observed and sterile equipment and aseptic technique used. Return of less than 50 mL yellow-colored clear urine; odor is normal. She tolerated procedure well (in and out for drug and alcohol screen). ( Patient unable to urinate in bed tate, patient was catheterized by student nurse Cassandra from [facility], in and out done for drug and alcohol screen). --05:06 Blossom Rowan R.N. 06:01. The patient is sleeping. RESPIRATORY: No respiratory distress. SKIN: Skin color within normal limits. --06:29 Moreno Willams R.N. 06:18 PAT steam blocker attempted to evaluate pt - pt uncooperative and unwilling to speak with her. --06:32 Moreno Willams R.N. 06:33 11/29/16. BP: 116/62. HR: 67. RR: 16. O2 saturation: 97% on room air. --06:34 Moreno Willams R.N. The patient is sleeping. RESPIRATORY: No respiratory distress. SKIN: Skin color within normal limits. --06:34 Moreno Willams R.N. 07:17. Care transferred and report given (Alok DE LEÓN). --07:17 Moreno Willams R.N. 07:24 11/29/16. RR: 20. Pain level now: 0/10. Additional comments: pt sleeping. --07:25 Alok Montesinos R.N. Call light placed in reach. Side rails up x 2. Bed placed in lowest position. Brakes of bed on. --07:25 Alok Montesinos R.N. 08:35 11/29/16. RR: 20. Pain level now: 0/10. Additional comments: Pt sleeping. --08:36 Alok Montesinos R.N. Pulse oximeter and NIBP monitor placed on patient; monitor alarms on. Head of bed elevated. Reassurance given. ( Pt is awake, finished breakfast.). Call light placed in reach. Side rails up x 2. Bed placed in lowest position. Brakes of bed on. Patient waiting for evaluation and (waiting for PAT team, ETA is pending.). --10:28 Alok Montesinos R.N. 10:26 11/29/16. BP: 105/63 (regular adult cuff) taken on the left arm, while lying. HR: 81. RR: 16. O2 saturation: 100% on room air. Temp: 98.1 F (oral). Pain level now: 01/12. --10:28 Alok Montesinos R.N. 11:30 11/29/16. BP: 104/60. HR: 75. RR: 16. O2 saturation: 96% on room air. --11:48 Alok Montesinos R.N. Pulse oximeter and NIBP monitor placed on patient; monitor alarms on. Head of bed elevated. Reassurance given. ( Lunch tray has been ordered. PAT team ETA is 1400.). Call light placed in reach. Side rails up x 2. Bed placed in lowest position. Brakes of bed on. --11:48 Alok Montesinos R.N. ( Pt given lunch). --12:04 Sid Hammond 12:00 11/29/16. BP: 120/69. HR: 74. RR: 16. O2 saturation: 98% on room air. --13:17 Alok Montesinos R.N. 12:30 11/29/16. BP: 110/63. HR: 75. RR: 16. O2 saturation: 98% on room air. --13:18 Alok Montesinos R.N. 13:00 11/29/16. BP: 107/67. HR: 72. RR: 16. O2 saturation: 98% on room air. Pardo-Nunez pain scale: 10. --13:19 Alok Montesinos R.N. 13:30 11/29/16. BP: 112/70. HR: 75. RR: 16. O2 saturation: 99% on room air. --15:10 Alok Montesinos R.N. ( PAT team here to assess pt.). --15:10 Alok Montesinos R.N. 14:00 11/29/16. BP: 127/81. HR: 77. RR: 20. O2 saturation: 98% on room air. --15:12 Alok Montesinos R.N. 14:30 11/29/16. BP: 106/61. HR: 74. RR: 18. O2 saturation: 97% on room air. --15:13 Alok Montesinos R.N. ( PAT team at the bedside). --15:58 Alok Montesinos R.N. 17:35 11/29/16. BP: 106/60. HR: 84. RR: 20. O2 saturation: 100% on room air. Temp: 98.3 F. Pain level now: 02/12. Additional comments: pain is from her 'restless legs'. --17:40 Alok Montesinos R.N. Head of bed elevated. Reassurance given. ( water provided, dinner tray is ordered, waiting for placement). Call light placed in reach. Side rails up x 2. Bed placed in lowest position. Brakes of bed on. --17:40 Alok Montesinos R.N. 18:14 11/29/2016 Ibuprofen PO Tablets 600 mg given. Allergies verified and confirmed 5 rights. --18:14 Rosie Carr R.N. ( Report received from Alok Villanueva RN). --18:57 Boston Moyer R.N. ( Patient ambulated to the bathroom. PAtient ambulated back to the ER room#13.). --19:33 Boston Moyer R.N. 20:12 11/29/2016 Tylenol (Acetaminophen) PO Tablets 650 mg given. Allergies verified and confirmed 5 rights. --20:12 Boston Moyer R.N. 20:45 11/29/2016 Clonidine Topical Patch/Pad 0.1 mg. Applied to the left upper arm. Allergies verified and confirmed 5 rights. --20:46 Boston Moyer R.N. ( Patient resting in bed, conversant and awake, watching television). --20:47 Boston Moyer R.N. 20:47 11/29/16. HR: 71. O2 saturation: 96% on room air. --20:47 Boston Moyer R.N. ( Patient appears calm, is resting in bed awaiting transportation to crisis center.). --22:33 Boston Moyer R.N. DISPOSITION / DISCHARGE Departure time: 23:15. Condition at departure: stable. No learning barriers present. Discharge instructions provided and reviewed with the patient. Reviewed warnings. Reviewed referrals for followup. Patient verbalized understanding. Written instructions provided in Greek. The patient was discharged ([facility] in [place]) and accompanied by EMS. She left the Emergency Department via ambulance and on a stretcher. Driving (EMS). Transferred. Summary of care provided to EMS (to [facility] triage center in [place]). Patient's personal items include: shirt, pants, shoes and purse; items were transported with the patient. --23:15 Boston Moyer R.N. 23:12 11/29/16. BP: 101/67. HR: 78. RR: 16. O2 saturation: 98% on room air. Pain level now: 0/10. --23:15 Boston Moyer R.N. Report was given to an EMT/P. Report included patient's care, treatment, medications, reviewed medication reconcilliation, and condition (including any recent changes or anticipated changes). All questions were answered. Report was acknowledged. (to [employer] career development specialist). --23:16 Boston Moyer R.N. Locked/Released at 11/29/2016 23:16 by Boston Moyer R.N.
--- NOTE | 2016-11-29 22:12 | ED ORDER SUMMARY ---
..... Patient: AUTUMN AGUDELO [facility] VisitID: [id number] [place] [address] 41y, F Registration Date/Time: 11/29/2016 ORDER SHEET Weight: 63.5 kg Allergies: None GENERAL ORDERS: CBC w Diff Urgent (02:38 11/29/2016 Oneil Santos) (Ack 2:39 CHagerty ER Clerk Carrier) (3:32 JQuivey R.N.) CMP Urgent (02:38 11/29/2016 Oneil Santos) (Ack 2:39 CHagerty ER Clerk Carrier) (3:32 JQuivey R.N.) UA-Culture if indicated Urgent (02:11/29/2016 Oneil Santos) (Ack 2:39 CHagerty ER Clerk Carrier) (5:06 JSanders R.N.) PT with INR Urgent (02:38 11/29/2016 Oneil Santos) (Ack 2:39 CHagerty ER Clerk Carrier) (3:32 JQuivey R.N.) Urine Urgent (02:38 11/29/2016 Oneil Santos) (Ack 2:39 CHagerty ER Clerk Carrier) (5:06 JSanders R.N.) Urine Drug Screen Urgent (02:38 11/29/2016 Oneil Santos) (Ack 2:39 CHagerty ER Clerk Carrier) (5:06 JSanders R.N.) Acetaminophen Level Urgent (02:38 11/29/2016 Oneil Santos) (Ack 2:39 CHagerty ER Clerk Carrier) (3:32 JQuivey R.N.) Salicylate Level Urgent (02:38 11/29/2016 Oneil Santos) (Ack 2:39 CHagerty ER Clerk Carrier) (3:32 JQuivey R.N.) Ethyl Alcohol Urgent (02:38 11/29/2016 Oneil Santos) (Ack 2:39 CHagerty ER Clerk Carrier) (3:32 JQuivey R.N.) MEDICATION ORDERS: Ibuprofen PO 600 mg (NOW) (18:11 11/29/2016 DDean R.N. per protocol) (18:14 DDean R.NHipolito) Tylenol PO 650 mg (NOW) (20:04 11/29/2016 [place]) (20:12 Michael Martinez.) Clonidine Topical 0.1 mg (NOW) (20:40 11/29/2016 [place]) (20:46 Michael Choudhary.Nasreen.) IV FLUIDS: ORDER SHEET NOTES: [Electronically signed by Boston Moyer R.N. (23:16 11/29/2016)] [Electronically signed by Ralph Brothers MD (20:49 12/01/2016)] [Electronically locked/signed by Boston Moyer R.N. (23:16 11/29/2016)]
--- NOTE | 2016-12-01 20:50 | ED DISCHARGE INSTRUCTIONS ---
Patient: AUTUMN AGUDELO General Instructions [facility] VisitID: [id number] [address], [place] [address] 41y, F Registration Date/Time: 11/29/2016 Depression. POLY SUBSTANCE ABUSE. INSTRUCTIONS (WE HAVE FOUND A CRISIS BED. CONSIDER [facility] FOR SUBSTANCE TREATMENT.). Follow-up: Follow up with doctor. Understanding of the discharge instructions verbalized by patient. Follow-up with: [facility], , , [address], , [place], [address] Follow up. Reason for referral: [facility]. (Electronically signed by Ralph Brothers MD 12/01/2016 20:49)
--- NOTE | 2016-12-01 20:50 | ED DISCHARGE INSTRUCTIONS ---
Patient: AUTUMN AGUDELO General Instructions [facility] VisitID: [id number] [address], [place] [address] 41y, F Registration Date/Time: 11/29/2016 Depression. POLY SUBSTANCE ABUSE. INSTRUCTIONS (WE HAVE FOUND A CRISIS BED. CONSIDER [facility] FOR SUBSTANCE TREATMENT.). Follow-up: Follow up with doctor. Understanding of the discharge instructions verbalized by patient. Follow-up with: [facility], , , [address], , [place], [id number] Follow up. Reason for referral: [facility]. (Electronically signed by Ralph Brothers MD 12/01/2016 20:49)
--- NOTE | 2016-12-01 20:50 | ED MED RECONCILIATION SUMMARY ---
Patient: AUTUMN AGUDELO Medication Reconciliation Report [facility] VisitID: [id number] [address] [place] [address] 41y, F Registration Date/Time: 11/29/2016 Weight: 63.5 kg Height/Length: 65 in. BMI: 23.3 ALLERGIES: None The patient's Home Medications are listed below: THE FOLLOWING MEDICATIONS NEED TO BE RECONCILED: Citalopram Hydrobromide Oral daily Omeprazole Oral 20 mg, daily Propranolol HCl Oral, daily TraZODone HCl Oral 50 mg, daily The source(s) of the original Home Medication information: patient The following Medications were given to the patient in the Emergency Department: Ibuprofen [PO] PO 600 mg, administered: 11/29/2016 6:14:00 PM Tylenol [PO] PO 650 mg, administered: 11/29/2016 8:12:00 PM Clonidine [Topical] Topical 0.1 mg, administered: 11/29/2016 8:45:00 PM The following Medications were prescribed to the patient: None.
--- NOTE | 2016-12-01 20:50 | ED MAR SUMMARY ---
..... Medication Administration Record [facility] [address] [place] [address] Patient: AUTUMN AGUDELO Visit ID: [id number] 41y, F Weight: 63.5 kg Height/Length: 65 in BMI: 23.3 ALLERGIES: None Given 18:14 11/29/2016 Rosei Carr R.N. Medication Administered: IBUPROFEN [PO], Dose: 600 mg Tablets PO. Medication Ordered: Ibuprofen PO 600 mg (NOW). Given 20:12 11/29/2016 Boston Moyer R.N. Medication Administered: TYLENOL [PO] (ACETAMINOPHEN), Dose: 650 mg Tablets PO. Medication Ordered: Tylenol PO 650 mg (NOW). Given 20:45 11/29/2016 Boston Moyer R.N. Medication Administered: CLONIDINE [TOPICAL], Dose: 0.1 mg Patch/Pad Topical. Medication Ordered: Clonidine Topical 0.1 mg (NOW).
--- NOTE | 2016-12-01 20:50 | ED MAR SUMMARY ---
..... Medication Administration Record [facility] [address] [place] [address] Patient: AUTUMN AGUDELO Visit ID: [id number] 41y, F Weight: 63.5 kg Height/Length: 65 in BMI: 23.3 ALLERGIES: None Given 18:14 11/29/2016 Rosie Carr R.N. Medication Administered: IBUPROFEN [PO], Dose: 600 mg Tablets PO. Medication Ordered: Ibuprofen PO 600 mg (NOW). Given 20:12 11/29/2016 Boston Moyer R.N. Medication Administered: TYLENOL [PO] (ACETAMINOPHEN), Dose: 650 mg Tablets PO. Medication Ordered: Tylenol PO 650 mg (NOW). Given 20:45 11/29/2016 Boston Moyer R.N. Medication Administered: CLONIDINE [TOPICAL], Dose: 0.1 mg Patch/Pad Topical. Medication Ordered: Clonidine Topical 0.1 mg (NOW).
--- NOTE | 2016-12-01 20:50 | ED MED RECONCILIATION SUMMARY ---
Patient: AUTUMN AGUDELO Medication Reconciliation Report [facility] VisitID: [id number] [address] [place] [address] 41y, F Registration Date/Time: 11/29/2016 Weight: 63.5 kg Height/Length: 65 in. BMI: 23.3 ALLERGIES: None The patient's Home Medications are listed below: THE FOLLOWING MEDICATIONS NEED TO BE RECONCILED: Citalopram Hydrobromide Oral daily Omeprazole Oral 20 mg, daily Propranolol HCl Oral, daily TraZODone HCl Oral 50 mg, daily The source(s) of the original Home Medication information: patient The following Medications were given to the patient in the Emergency Department: Ibuprofen [PO] PO 600 mg, administered: 11/29/2016 6:14:00 PM Tylenol [PO] PO 650 mg, administered: 11/29/2016 8:12:00 PM Clonidine [Topical] Topical 0.1 mg, administered: 11/29/2016 8:45:00 PM The following Medications were prescribed to the patient: None.
== END 2016-11-29 23:10 | disposition short-term general hospital (02) ==
LOC: ED SRH 02:25
DX: F32.9 Major depressive disorder, single episode, unspecified (principal); F19.10 Other psychoactive substance abuse, uncomplicated; K21.9 Gastro-esophageal reflux disease without esophagitis; Z79.899 Other long term (current) drug therapy
CPT/HCPCS: 90004; 90074; 90100; 92010; 92760; 92761; 92762; 92763; 92764; 92765; 92766; 92767; 92780; 93070; 94060; 95059; 97000